=== PATIENT | female | born 1945 | race Caucasian/White ===

== ENCOUNTER 2019-01-11 19:13 | Inpatient (IN) ==
[2019-01-12] MEDS ORDERED: *HR* GlyBURIDE 5 MG TABLET PO SCH (17:00)
[2019-01-12] MEDS: *HR* Metformin 500 MG TABLET PO SCH (18:06)
[2019-01-12] MEDS: hydrALAZINE 25 MG TABLET PO SCH (21:27)
[2019-01-13] MEDS: Levothyroxine 25 MCG TABLET PO SCH (05:47)
[2019-01-13 06:19] LABS: Basophils % 0.3 %; Eosinophils # 0.3 K/mcL (0.0-0.6); Eosinophils % 3.5 %; Hematocrit 35.1 % (35.3-44.9); Hemoglobin 11.1 g/dL (11.5-15.4); Immature Granulocytes % 0.4 % (0-4); Lymphocytes # 1.9 K/mcL (0.6-4.6); Lymphocytes % 25.3 %; Mean Corpuscular HGB Conc 31.6 g/dL (31.6-35.5); Mean Corpuscular Hemoglobin 26.7 pg (28.0-33.3); Mean Corpuscular Volume 84.6 fL (83.0-100.0); Mean Platelet Volume 11.2 fL (9.4-12.4); Monocytes # 0.6 K/mcL (0.0-1.3); Neutrophils # 4.6 K/mcL (1.6-8.9); Platelet Count 254 K/mcL (140-400); Red Blood Count 4.15 M/mcL (3.82-4.97); Red Cell Distribution Width 15.4 % (11.5-14.5); Segmented Neutrophils % 62.5 %
[2019-01-13 06:41] LABS: Prothrombin Time 11.8 Seconds (9.4-12.1)
[2019-01-13 06:47] LABS: BUN/Creatinine Ratio 13 (6-26); Blood Urea Nitrogen 14 mg/dL (8-23); Calcium 9.4 mg/dL (8.6-10.3); Carbon Dioxide 29 mEq/L (23-29); Chloride 98 mEq/L (98-107); Glucose 197 mg/dL (70-105); Osmolality,Calculated 286 (280-300); Potassium 3.6 mEq/L (3.5-5.1); Sodium 135 mEq/L (136-145); eGFR For Non-African Americans 50 (> 60)
[2019-01-13] MEDS: Ondansetron ODT 4 MG TAB.RAPDIS SL PRN (08:03)
[2019-01-13] MEDS: *HR* Metformin 500 MG TABLET PO SCH ×2 (10:40→18:20)
[2019-01-13] MEDS: *HR* GlyBURIDE 5 MG TABLET PO SCH ×2 (10:40→18:21)
[2019-01-13] MEDS: Multivit/Ca/Min/Fe/FA 1 TAB TABLET PO SCH (10:41)
[2019-01-13] MEDS: Anastrozole 1 MG TABLET PO SCH (10:41)
[2019-01-13] MEDS: hydrALAZINE 25 MG TABLET PO SCH ×2 (10:41→21:21)
[2019-01-13] MEDS: Cholecalciferol (D-3) 1,000 UNIT TABLET PO SCH (10:41)
--- NOTE | 2019-01-13 12:08 | Internal Med History&Physical ---
Date of Encounter: 01/13/19 Time of Encounter: 11:35 Assessment and Plan (1) Cerebellar stroke Current visit: Yes Status: Acute Continue Plavix. PT and OT evaluations have been ordered. (2) Anemia Current visit: Yes Status: Acute Hemoglobin 11.1 today. Anemia testing will be done in a.m. Qualifiers: Anemia type: unspecified type Qualified Code(s): D64.9 - Anemia, unspecified (3) HTN (hypertension) Current visit: No Status: Chronic Continue Coreg, chlorthalidone, hydralazine, and Cozaar. Qualifiers: Hypertension type: essential hypertension Qualified Code(s): I10 - Essential (primary) hypertension (4) DM II (diabetes mellitus, type II), controlled Current visit: No Status: Chronic Hemoglobin A1c was 7.9% on 01/08/2019. Continue glyburide and Glucophage. Qualifiers: Diabetes mellitus jail insulin use: without jail use Diabetes mellitus complication status: without complication Qualified Code(s): E11.9 - Type 2 diabetes mellitus without complications Internal Medicine - H&P: HPI Chief complaint: Stroke Admitted From: Intrahospital Transfer Plans for Post Hospital Care: Home History of present illness: Ms. Andre is a 73 year old female who was hospitalized at [facility] December 4 after presenting with falling and ataxia onset 4 days previously. She was found to have multiple acute small bilateral cerebellar infarcts. MRA showed filling absence of the right vertebral likely secondary to 100% occlusion, 70% focal stenosis in the left vertebral distal V4 segment , 40% stenosis of the proximal left CHILDR[employer] CLUB ATTENDANT P2 segment, and 90% stenosis of the origin of the right CHIL[employer] ATTENDANT P2 segment. She was placed on aspirin and Plavix initially and was discharged on Plavix and statin. Echocardiogram showed no valvular abnormalities or thrombus. She was discharged to [facility] swing bed for ongoing care needs. She denies previous documented strokes. She denies seizures syncope or other neurologic diagnoses. Past Med Surg Social Fam HX - Past Medical History Medical history: cancer, CHF, diabetes, GERD, hypertension Additional medical history: OSTEOPENIA. URINARY FREQUENCY/INCONTINENCE. DIVERTICULOSIS. RIGHT BREAST CA Psychiatric history: no psych history - Past Surgical History Surgical History: hysterectomy, other Additional surgical history: sinus sx, right ankle break and repair, tubal - Social History Smoking Status: Former smoker Packs per day: 0 Smokeless Tobacco Status: No Alcohol use: none Drug use: none - Family History Mother Adopted: No Family Member Ethnicity: Non- Living Status: Hx Family Cardiac Disorders: Yes Hx Family Respiratory Disorders: No Hx Family Cancer: Yes Hx Family GI Disorders: No Hx Family Endocrine Disorder: No Hx Family Neuromuscular Disorders: No Hx Family Neurologic Disorders: No Hx Family HEENT Disorders: No Hx Family Autoimmune Disorders: No Father Adopted: Yes Family Member Ethnicity: Non- Living Status: Hx Family Cardiac Disorders: Yes Hx Family Respiratory Disorders: No Hx Family Cancer: Yes Hx Family GI Disorders: No Hx Family Endocrine Disorder: No Hx Family Neuromuscular Disorders: No Hx Family Neurologic Disorders: No Hx Family HEENT Disorders: No Hx Family Autoimmune Disorders: No Internal Medicine - H&P: Meds Glyburide/Metformin HCl [Glucovance 5-500 mg Tablet] 2 tab PO BID 12/02/15 [History] Levothyroxine [Synthroid] 25 mcg PO DAILY 12/02/15 [History] Omeprazole [PriLOSEC] 40 mg PO DAILY 12/02/15 [History] Docusate [Colace] 1 cap PO DAILY PRN 09/20/18 [History] Anastrozole [Arimidex] 1 mg PO DAILY 30 Days #30 tablet 10/24/18 [Rx] Calcium Carbonate/Vitamin D3 [Calcium 500 + Vit D Caplet] 2 each PO DAILY #60 tablet 10/24/18 [Rx] Mv W-Ca/Iron/FA/Lutein/Hrb#179 [Surinder Multivit For Women Caplet] 1 tab PO DAILY 01/08/19 [History] Atorvastatin [Lipitor] 80 mg PO HS tablet 01/12/19 [Rx] Carvedilol [Coreg] 12.5 mg PO BIDWM tablet 01/12/19 [Rx] Chlorthalidone 25 mg PO DAILY tablet 01/12/19 [Rx] Clopidogrel [Plavix] 75 mg PO DAILY tablet 01/12/19 [Rx] Losartan [Cozaar] 50 mg PO DAILY tablet 01/12/19 [Rx] hydrALAZINE [HydrALAZINE] 25 mg PO BID tablet 01/12/19 [Rx] Allergy/AdvReac Type Severity Reaction Status Date / Time Sulfa (Sulfonamide Allergy Intermediate SKIN SORES Verified 01/08/19 11:08 Antibiotics) hydrocodone [From Vicodin] AdvReac Mild Itching Verified 01/08/19 11:08 hydrochlorothiazide AdvReac Unknown DECREASED Verified 01/08/19 11:08 BP codeine AdvReac Nausea Verified 01/08/19 11:08 lisinopril AdvReac DECREASED Verified 01/08/19 11:08 BP All Systems PM: A 10-system review of systems was performed and is negative for pertinent findings except as documented above in the HPI. Review of systems: Gen.: Her weight has decreased approximately 10 pounds in the past few months, unintentionally Cardiovascular: She has history of hypertension but denies [place] heart failure angina DVT or pulmonary embolus. Echocardiogram 01/09/2019 showed LVEF of 60- 65%. The interventricular septum and posterior wall thickness measurements were elevated at 1.30 cm each. The E/A ratio was 0.9. No significant valvular abnormalities were seen. No vegetations or thrombus was noted. Respiratory: She smoked from age [age] up to 3 packs per day. She reports PFTs approximately 2013 ago showed no chronic lung disease. She does not use home oxygen and has not been tested for sleep apnea. GI: She has had rectal polyps removed. She denies disorders of her liver gallbladder or exocrine pancreas : She denies hematuria dysuria or kidney stones Neurologic: As per history of present illness Endocrine: She was diagnosed with DM 2 approximately 2001. She has hypothyroidism and hyperlipidemia Hematology/oncology: She was diagnosed with right breast cancer 2015 and underwent lumpectomy. She declined XRT. She had recurrent cancer August 2018 and underwent lumpectomy followed by 20 XRT treatments ending November 2018. She is presumed cancer free. She denies other internal malignancies. She has history of anemia. Psychiatric: She denies anxiety depression or other mental health diagnosis [place] skeletal: She has DJD. She had remote left ankle fracture repair. She den ies gout or other bone joint or muscle disorders. - Constitutional Vitals: Temp Pulse Resp BP Pulse Ox 98.5 F 72 16 145/71 94 01/13/19 06:32 01/13/19 06:32 01/13/19 06:32 01/13/19 06:32 01/13/19 06:32 Exam: Gen.: She is a well-developed well-nourished female resting comfortably in bed who appears in no acute distress HEENT: Head is atraumatic and normal cephalic. Eyes: EOMI. There is no scleral icterus. Mouth: Mucosa is moist. Neck: Supple and nontender. There is no thyromegaly or adenopathy noted. Heart: Regular without murmurs gallops or ectopics Lungs: No wheezes or crackles are heard. Abdomen: Soft and nontender. No masses or guarding are noted. Extremities: There is no cyanosis edema or clubbing noted. Dorsalis pedis and posterior tibial pulses are trace to 1+ palpable bilaterally. Neurologic: Mental status: She is talkative and a good historian. Cranial nerves: Smile is symmetric. Forehead wrinkles bilaterally. Tongue protrudes midline. EOMI. Motor: There is no pronator drift. Thumb to sequential finger movement testing was intact bilaterally. Cerebellar: Finger to nose is intact bilaterally. Skin: Warm and dry Internal Med - H&P Results - Labs CBC & Chem 7: 01/13/19 05:15 01/13/19 05:15 Labs: Short CBC 01/13/19 Range/Units 05:15 WBC 7.3 (4.3-11.1) K/mcL Hgb 11.1 L (11.5-15.4) g/dL Hct 35.1 L (35.3-44.9) % Plt Count 254 (140-400) K/mcL Neutrophils # 4.6 (1.6-8.9) K/mcL BMP 01/13/19 05:15 Sodium 135 L Potassium 3.6 Chloride 98 Carbon Dioxide 29 BUN 14 Creatinine 1.07 Glucose 197 H Calcium 9.4
[2019-01-13] MEDS ORDERED: traMADol 50 MG TABLET PO ONE (22:34)
[2019-01-13] MEDS: *HR* Enoxaparin 40 MG/0.4 ML SYRINGE SQ SCH (22:48)
[2019-01-13] MEDS ORDERED: Ibuprofen 600 MG TABLET PO ONE (23:36)
[2019-01-14] MEDS: Ondansetron ODT 4 MG TAB.RAPDIS SL PRN ×2 (01:42→06:26)
[2019-01-14] MEDS: Levothyroxine 25 MCG TABLET PO SCH (06:20)
[2019-01-14] MEDS: *HR* Enoxaparin 40 MG/0.4 ML SYRINGE SQ SCH (06:20)
[2019-01-14] MEDS: *HR* Metformin 500 MG TABLET PO SCH ×2 (11:35→18:03)
[2019-01-14] MEDS: *HR* GlyBURIDE 5 MG TABLET PO SCH ×2 (11:35→18:05)
[2019-01-14] MEDS: Anastrozole 1 MG TABLET PO SCH (11:35)
[2019-01-14] MEDS: hydrALAZINE 25 MG TABLET PO SCH ×2 (11:35→19:56)
[2019-01-14] MEDS: Cholecalciferol (D-3) 1,000 UNIT TABLET PO SCH (11:35)
[2019-01-14] MEDS: Multivit/Ca/Min/Fe/FA 1 TAB TABLET PO SCH (11:35)
--- NOTE | 2019-01-14 18:16 | Internal Med Progress Note ---
Date of Encounter: 01/14/19 Time of Encounter: 18:05 - Assessment and plan (1) Cerebellar stroke Current Visit: Yes Status: Acute Assessment and plan: January 14. Continue Plavix and PT/OT. (2) Anemia Current Visit: Yes Status: Acute Assessment and plan: January 14. Check labs in a.m. Qualifiers: Anemia type: unspecified type Qualified Code(s): D64.9 - Anemia, unspecified (3) HTN (hypertension) Current Visit: No Status: Chronic Assessment and plan: January 14. Continue Coreg, hydralazine, and Cozaar. She reports she was not taking chlorthalidone at home. This will be discontinued. Qualifiers: Hypertension type: essential hypertension Qualified Code(s): I10 - Essential (primary) hypertension (4) DM II (diabetes mellitus, type II), controlled Current Visit: No Status: Chronic Assessment and plan: January 14. Hemoglobin A1c was 7.9% on 01/08/2019. Continue glyburide and Glucophage. Qualifiers: Diabetes mellitus detention insulin use: without intermodal customer service use Diabetes mellitus complication status: without complication Qualified Code(s): E11.9 - Type 2 diabetes mellitus without complications (5) Chest pain Current Visit: Yes Status: Acute Assessment and plan: January 14. Suspect pleurisy etiology. Review of past records showed chest CT July 2017 with bilateral upper lobe nodules. Recommendation for follow-up CT in 3-6 months has not been done. Chest CT will be ordered to further evaluate. Qualifiers: Chest pain type: chest pain on breathing Qualified Code(s): R07.1 - Chest pain on breathing; R07.81 - Pleurodynia - Subjective Interval history: January 14. She developed discomfort in her chest last evening that she describes as a sharp pain worse on deep inspiration under her left breast. She has had minimal cough. She states it has lessened now. She was given ibuprofen last evening. - Constitutional Vitals: Temp Pulse Resp BP Pulse Ox 97.5 F L 63 16 175/65 95 01/14/19 06:46 01/14/19 06:46 01/14/19 06:46 01/14/19 06:46 01/14/19 06:46 Exam: She is resting comfortably in bed and appears in no acute distress. She has worsening of the pain on deep inspiration. Heart is regular without murmurs gallops or ectopics. There is no pleural friction rub heard over the area of pain. I reviewed her medications and lab results. Internal Medicine: Result - Labs CBC & Chem 7: 01/13/19 05:15 01/13/19 05:15 - ABG Interpretation ABG results: PT/INR, D-dimer PT 11.8 Seconds (9.4-12.1) 01/13/19 05:15 Consult Discharge Plan - Plan Referrals: Sadie York MD [Primary Care Provider] - 1 week
[2019-01-14] MEDS: predniSONE 10 MG TABLET PO SCH (19:56)
[2019-01-15] MEDS: Levothyroxine 25 MCG TABLET PO SCH (05:38)
[2019-01-15] MEDS: *HR* Enoxaparin 40 MG/0.4 ML SYRINGE SQ SCH (05:38)
[2019-01-15 06:07] LABS: Basophils % 0.3 %; Eosinophils # 0.1 K/mcL (0.0-0.6); Eosinophils % 1.3 %; Hematocrit 33.3 % (35.3-44.9); Hemoglobin 10.7 g/dL (11.5-15.4); Immature Granulocytes % 0.5 % (0-4); Lymphocytes # 1.1 K/mcL (0.6-4.6); Lymphocytes % 18.2 %; Mean Corpuscular HGB Conc 32.1 g/dL (31.6-35.5); Mean Corpuscular Hemoglobin 26.9 pg (28.0-33.3); Mean Corpuscular Volume 83.7 fL (83.0-100.0); Monocytes # 0.4 K/mcL (0.0-1.3); Monocytes % 5.6 %; Neutrophils # 4.7 K/mcL (1.6-8.9); Platelet Count 239 K/mcL (140-400); Red Blood Count 3.98 M/mcL (3.82-4.97); Red Cell Distribution Width 15.1 % (11.5-14.5); Segmented Neutrophils % 74.1 %
[2019-01-15 06:34] LABS: BUN/Creatinine Ratio 18 (6-26); Blood Urea Nitrogen 18 mg/dL (8-23); Calcium 9.2 mg/dL (8.6-10.3); Carbon Dioxide 29 mEq/L (23-29); Chloride 94 mEq/L (98-107); Glucose 232 mg/dL (70-105); Osmolality,Calculated 281 (280-300); Potassium 4.1 mEq/L (3.5-5.1); Sodium 131 mEq/L (136-145); eGFR For Non-African Americans 54 (> 60)
[2019-01-15 06:48] LABS: Thyroid Stimulating Hormone 0.693 mcIU/mL (0.340-5.600)
[2019-01-15] MEDS: Ondansetron ODT 4 MG TAB.RAPDIS SL PRN (09:05)
[2019-01-15 09:13] LABS: % Iron Saturation 9 % (15-50); Iron 36 mcg/dL (50-170); Transferrin 276 mg/dL (203-362)
[2019-01-15 09:31] LABS: Ferritin 85 ng/mL (10-120)
[2019-01-15 09:37] LABS: Folate 17.1 ng/mL (3.0-16.0)
[2019-01-15] MEDS ORDERED: Isovue-370 500 ML BOTTLE IVP ONE (09:51)
[2019-01-15] MEDS: *HR* GlyBURIDE 5 MG TABLET PO SCH ×2 (10:05→17:43)
[2019-01-15] MEDS: Cholecalciferol (D-3) 1,000 UNIT TABLET PO SCH (10:05)
[2019-01-15] MEDS: hydrALAZINE 25 MG TABLET PO SCH ×2 (10:05→21:19)
[2019-01-15] MEDS: Multivit/Ca/Min/Fe/FA 1 TAB TABLET PO SCH (10:06)
[2019-01-15] MEDS: predniSONE 10 MG TABLET PO SCH ×2 (10:07→21:19)
[2019-01-15] MEDS: Anastrozole 1 MG TABLET PO SCH (10:07)
[2019-01-15] MEDS: *HR* Metformin 500 MG TABLET PO SCH (10:24)
--- NOTE | 2019-01-15 15:59 | Internal Med Progress Note ---
Date of Encounter: 01/15/19 Time of Encounter: 14:50 - Assessment and plan (1) Cerebellar stroke Current Visit: Yes Status: Acute Assessment and plan: January 14. Continue Plavix and PT/OT. (2) Anemia Current Visit: Yes Status: Acute Assessment and plan: January 14. Check labs in a.m. January 15. Anemia testing shows iron 36, transferrin saturation 9%, transferrin 276, B12 444, and folate 17.1. Start ferrous sulfate with ascorbic acid in a.m. Qualifiers: Anemia type: unspecified type Qualified Code(s): D64.9 - Anemia, unspecified (3) HTN (hypertension) Current Visit: No Status: Chronic Assessment and plan: January 14. Continue Coreg, hydralazine, and Cozaar. She reports she was not taking chlorthalidone at home. This will be discontinued. January 15. Blood pressure slightly higher than desirable. Continue to monitor and adjust medications as needed. Qualifiers: Hypertension type: essential hypertension Qualified Code(s): I10 - Essential (primary) hypertension (4) DM II (diabetes mellitus, type II), controlled Current Visit: No Status: Chronic Assessment and plan: January 14. Hemoglobin A1c was 7.9% on 01/08/2019. Continue glyburide and Glucophage. Qualifiers: Diabetes mellitus fdc insulin use: without intermodal truck driver use Diabetes mellitus complication status: without complication Qualified Code(s): E11.9 - Type 2 diabetes mellitus without complications (5) Chest pain Current Visit: Yes Status: Acute Assessment and plan: January 14. Suspect pleurisy etiology. Review of past records showed chest CT July 2017 with bilateral upper lobe nodules. Recommendation for follow-up CT in 3-6 months has not been done. Chest CT will be ordered to further evaluate. January 15. Improved. D-dimer was elevated at 881 so chest CTA was done. No pulm onary embolism was seen and nodules previously noted in upper lungs had resolved. Continue prednisone and Naprosyn until tomorrow Qualifiers: Chest pain type: chest pain on breathing Qualified Code(s): R07.1 - Chest pain on breathing; R07.81 - Pleurodynia - Subjective Interval history: January 14. She developed discomfort in her chest last evening that she describes as a sharp pain worse on deep inspiration under her left breast. She has had minimal cough. She states it has lessened now. She was given ibuprofen last evening. January 15. She states her chest pain has lessened further. She has no new complaints. - Constitutional Vitals: Temp Pulse Resp BP Pulse Ox 97.8 F 68 16 154/67 93 01/15/19 06:56 01/15/19 06:56 01/15/19 06:56 01/15/19 06:56 01/15/19 06:56 Exam: She is resting comfortably in bed and appears in no acute distress. Her affect is bright and cheerful. I reviewed her medications, lab results, and CT report. Internal Medicine: Result - Labs CBC & Chem 7: 01/15/19 05:14 01/15/19 05:14 Labs: Short CBC 01/15/19 Range/Units 05:14 WBC 6.3 (4.3-11.1) K/mcL Hgb 10.7 L (11.5-15.4) g/dL Hct 33.3 L (35.3-44.9) % Plt Count 239 (140-400) K/mcL Neutrophils # 4.7 (1.6-8.9) K/mcL BMP 01/15/19 05:14 Sodium 131 L Potassium 4.1 Chloride 94 L Carbon Dioxide 29 BUN 18 Creatinine 1.01 Glucose 232 H Calcium 9.2 - ABG Interpretation ABG results: PT/INR, D-dimer PT 11.8 Seconds (9.4-12.1) 01/13/19 05:15 881 ng/mLFEU (0-500) H 01/14/19 18:46 - Impressions Impressions Chest CTA 01/15/19 09:51 IMPRESSION: Negative for pulmonary embolus. Cardiomegaly D/ / Ang Lane MD / Ang Lane MD Interpreting Provider: Ang Lane MD Consult Discharge Plan - Plan Referrals: Sadie York MD [Primary Care Provider] - 1 week
[2019-01-16] MEDS: traMADol 50 MG TABLET PO PRN (01:39)
[2019-01-16] MEDS: *HR* Enoxaparin 40 MG/0.4 ML SYRINGE SQ SCH (05:45)
[2019-01-16] MEDS: Levothyroxine 25 MCG TABLET PO SCH (05:45)
[2019-01-16] MEDS: Ascorbic Acid 500 MG TABLET PO SCH (05:45)
[2019-01-16] MEDS: *HR* GlyBURIDE 5 MG TABLET PO SCH ×2 (08:56→16:40)
[2019-01-16] MEDS: Anastrozole 1 MG TABLET PO SCH (08:57)
[2019-01-16] MEDS: hydrALAZINE 25 MG TABLET PO SCH ×2 (08:58→21:38)
[2019-01-16] MEDS: Cholecalciferol (D-3) 1,000 UNIT TABLET PO SCH (08:58)
[2019-01-16] MEDS: Multivit/Ca/Min/Fe/FA 1 TAB TABLET PO SCH (08:58)
[2019-01-16] MEDS: predniSONE 10 MG TABLET PO SCH ×2 (08:58→21:38)
[2019-01-16] MEDS: MOM Conc 10 ML UD.LIQ PO SCH (12:01)
[2019-01-16] MEDS ORDERED: *HR* Dextrose 50 % in Water (Syg) 50 ML SYRINGE IVP PRN (22:05)
[2019-01-16] MEDS ORDERED: Dextrose Gel 15 GM/37.5 ML TUBE PO PRN ×2 (22:05)
[2019-01-16] MEDS ORDERED: D5% in Water 1,000 ML IVC PRN (22:05)
[2019-01-16] MEDS: Insulin LISPRO 300 UNITS/3 ML VIAL SQ SCH (22:45)
[2019-01-17] MEDS: Levothyroxine 25 MCG TABLET PO SCH (06:38)
[2019-01-17] MEDS: Ascorbic Acid 500 MG TABLET PO SCH (06:38)
[2019-01-17] MEDS: *HR* Enoxaparin 40 MG/0.4 ML SYRINGE SQ SCH (06:39)
[2019-01-17] MEDS: Insulin LISPRO 300 UNITS/3 ML VIAL SQ SCH ×4 (08:43→20:07)
[2019-01-17] MEDS: predniSONE 10 MG TABLET PO SCH (08:46)
[2019-01-17] MEDS: hydrALAZINE 25 MG TABLET PO SCH ×2 (08:46→20:07)
[2019-01-17] MEDS: Multivit/Ca/Min/Fe/FA 1 TAB TABLET PO SCH (08:47)
[2019-01-17] MEDS: *HR* GlyBURIDE 5 MG TABLET PO SCH ×2 (08:47→16:44)
[2019-01-17] MEDS: Cholecalciferol (D-3) 1,000 UNIT TABLET PO SCH (08:47)
[2019-01-17] MEDS: Anastrozole 1 MG TABLET PO SCH (08:49)
--- NOTE | 2019-01-17 12:26 | Internal Med Progress Note ---
Date of Encounter: 01/17/19 Time of Encounter: 12:18 - Assessment and plan (1) Cerebellar stroke Current Visit: Yes Status: Acute Assessment and plan: January 14. Continue Plavix and PT/OT. (2) Anemia Current Visit: Yes Status: Acute Assessment and plan: January 14. Check labs in a.m. January 15. Anemia testing shows iron 36, transferrin saturation 9%, transferrin 276, B12 444, and folate 17.1. Start ferrous sulfate with ascorbic acid in a.m. Qualifiers: Anemia type: unspecified type Qualified Code(s): D64.9 - Anemia, unspecified (3) HTN (hypertension) Current Visit: No Status: Chronic Assessment and plan: January 14. Continue Coreg, hydralazine, and Cozaar. She reports she was not taking chlorthalidone at home. This will be discontinued. January 15. Blood pressure slightly higher than desirable. Continue to monitor and adjust medications as needed. January 17. Blood pressure remains elevated. Increase Coreg to 25 mg twice a day. Continue hydralazine and Cozaar. Qualifiers: Hypertension type: essential hypertension Qualified Code(s): I10 - Essential (primary) hypertension (4) DM II (diabetes mellitus, type II), controlled Current Visit: No Status: Chronic Assessment and plan: January 14. Hemoglobin A1c was 7.9% on 01/08/2019. Continue glyburide and Glucophage. January 17. Metformin was held after chest CTA. Her home glyburide dose was 10 mg twice a day per her report. She has been restarted on lower dose glyburide. Adjust glyburide dose upward and possibly restart metformin tomorrow. Qualifiers: Diabetes mellitus detention insulin use: without detention use Diabetes mellitus complication status: without complication Qualified Code(s): E11.9 - Type 2 diabetes mellitus without complications (5) Chest pain Current Visit: Yes Status: Acute Assessment and plan: January 14. Suspect pleurisy etiology. Review of past records showed chest CT July 2017 with bilateral upper lobe nodules. Recommendation for follow-up CT in 3-6 months has not been done. Chest CT will be ordered to further evaluate. January 15. Improved. D-dimer was elevated at 881 so chest CTA was done. No pulmonary embolism was seen and nodules previously noted in upper lungs had resolved. Continue prednisone and Naprosyn until tomorrow January 17. Resolved. Discontinue prednisone and Naprosyn. Qualifiers: Chest pain type: chest pain on breathing Qualified Code(s): R07.1 - Chest pain on breathing; R07.81 - Pleurodynia - Subjective Interval history: January 14. She developed discomfort in her chest last evening that she describes as a sharp pain worse on deep inspiration under her left breast. She has had minimal cough. She states it has lessened now. She was given ibuprofen last evening. January 15. She states her chest pain has lessened further. She has no new complaints. January 15. She has no new complaints. She reports her chest pain has resolved. She is pleased with her progress in therapy. - Constitutional Vitals: Temp Pulse Resp BP Pulse Ox 97.8 F 68 14 193/76 97 01/17/19 06:14 01/17/19 08:42 01/17/19 06:14 01/17/19 08:42 01/17/19 08:42 Exam: She is resting comfortable on the side of bed eating lunch. Her affect is bright and cheerful. I reviewed her medications and lab results. Internal Medicine: Result - Labs CBC & Chem 7: 01/15/19 05:14 01/15/19 05:14 - ABG Interpretation ABG results: PT/INR, D-dimer PT 11.8 Seconds (9.4-12.1) 01/13/19 05:15 881 ng/mLFEU (0-500) H 01/14/19 18:46 Consult Discharge Plan - Plan Referrals: Sadie York MD [Primary Care Provider] - 1 week
[2019-01-18] MEDS: *HR* Enoxaparin 40 MG/0.4 ML SYRINGE SQ SCH (06:12)
[2019-01-18] MEDS: Levothyroxine 25 MCG TABLET PO SCH (06:12)
[2019-01-18] MEDS: Ascorbic Acid 500 MG TABLET PO SCH (06:12)
[2019-01-18] MEDS: Cholecalciferol (D-3) 1,000 UNIT TABLET PO SCH (08:44)
[2019-01-18] MEDS: Multivit/Ca/Min/Fe/FA 1 TAB TABLET PO SCH (08:44)
[2019-01-18] MEDS: *HR* GlyBURIDE 5 MG TABLET PO SCH ×2 (08:44→16:57)
[2019-01-18] MEDS: hydrALAZINE 25 MG TABLET PO SCH ×2 (08:44→20:41)
[2019-01-18] MEDS: Insulin LISPRO 300 UNITS/3 ML VIAL SQ SCH ×5 (08:46→20:54)
[2019-01-18] MEDS: Anastrozole 1 MG TABLET PO SCH (08:49)
[2019-01-18] MEDS: MOM Conc 10 ML UD.LIQ PO SCH (11:44)
[2019-01-19] MEDS: Levothyroxine 25 MCG TABLET PO SCH (06:32)
[2019-01-19] MEDS: Ascorbic Acid 500 MG TABLET PO SCH (06:32)
[2019-01-19] MEDS: *HR* Enoxaparin 40 MG/0.4 ML SYRINGE SQ SCH (06:32)
[2019-01-19] MEDS: Cholecalciferol (D-3) 1,000 UNIT TABLET PO SCH (08:55)
[2019-01-19] MEDS: *HR* GlyBURIDE 5 MG TABLET PO SCH ×2 (08:55→18:46)
[2019-01-19] MEDS: Multivit/Ca/Min/Fe/FA 1 TAB TABLET PO SCH (08:56)
[2019-01-19] MEDS: *HR* Metformin 500 MG TABLET PO SCH ×2 (08:56→18:46)
[2019-01-19] MEDS: hydrALAZINE 25 MG TABLET PO SCH ×2 (08:56→20:56)
[2019-01-19] MEDS: Insulin LISPRO 300 UNITS/3 ML VIAL SQ SCH ×4 (08:57→20:56)
[2019-01-19] MEDS: Anastrozole 1 MG TABLET PO SCH (09:01)
[2019-01-19] MEDS ORDERED: *HR* Dextrose 50 % in Water (Vial) 50 ML VIAL IVP PRN (13:00)
[2019-01-20] MEDS: traMADol 50 MG TABLET PO PRN (00:34)
[2019-01-20] MEDS: Ondansetron ODT 4 MG TAB.RAPDIS SL PRN (06:16)
[2019-01-20] MEDS: *HR* Enoxaparin 40 MG/0.4 ML SYRINGE SQ SCH (06:47)
[2019-01-20] MEDS: Ascorbic Acid 500 MG TABLET PO SCH (06:47)
[2019-01-20] MEDS: Levothyroxine 25 MCG TABLET PO SCH (06:47)
[2019-01-20] MEDS: Insulin LISPRO 300 UNITS/3 ML VIAL SQ SCH ×4 (08:09→21:32)
[2019-01-20] MEDS: *HR* GlyBURIDE 5 MG TABLET PO SCH ×2 (08:10→16:49)
[2019-01-20] MEDS: Multivit/Ca/Min/Fe/FA 1 TAB TABLET PO SCH (08:10)
[2019-01-20] MEDS: *HR* Metformin 500 MG TABLET PO SCH ×2 (08:10→16:49)
[2019-01-20] MEDS: Cholecalciferol (D-3) 1,000 UNIT TABLET PO SCH (08:10)
[2019-01-20] MEDS: hydrALAZINE 25 MG TABLET PO SCH ×2 (08:10→21:32)
[2019-01-20] MEDS: Anastrozole 1 MG TABLET PO SCH (08:10)
--- NOTE | 2019-01-20 09:58 | Discharge Summary ---
Date of Encounter: 01/20/19 Time of Encounter: 09:47 - Discharge Diagnosis (1) Cerebellar stroke Priority: Primary Status: Acute (2) Anemia Priority: Secondary Status: Acute Qualifiers: Anemia type: unspecified type Qualified Code(s): D64.9 - Anemia, unspecified (3) HTN (hypertension) Priority: Secondary Status: Chronic Qualifiers: Hypertension type: essential hypertension Qualified Code(s): I10 - Essential (primary) hypertension (4) DM II (diabetes mellitus, type II), controlled Priority: Secondary Status: Chronic Qualifiers: Diabetes mellitus fpc insulin use: without fpc use Diabetes mellitus complication status: without complication Qualified Code(s): E11.9 - Type 2 diabetes mellitus without complications (5) Chest pain Priority: Secondary Status: Resolved Qualifiers: Chest pain type: chest pain on breathing Qualified Code(s): R07.1 - Chest pain on breathing; R07.81 - Pleurodynia Hospital course: Ms. Andre is a 73 year old female who was hospitalized at [facility] December after presenting with falling and ataxia onset 4 days previously. She was found to have multiple acute small bilateral cerebellar infarcts. MRA showed filling absence of the right vertebral likely secondary to 100% occlusion, 70% focal stenosis in the left vertebral distal V4 segment , 40% stenosis of the proximal left [employer]OL[employer] PLANT OPERATOR P2 segment, and 90% stenosis of the origin of the right [employer] PLANT OPERATOR P2 segment. She was placed on aspirin and Plavix initially and was discharged on Plavix and statin. Echocardiogram showed no valvular abnormalities or thrombus. She was discharged to [facility] swing bed for ongoing care needs. Initial orders written by the discharging physicians at [facility]. I saw her on January 13 and performed a swing bed history and physical. She continued on Plavix. PT and OT evaluations with ongoing intervention were done. She made satisfactory progress in therapy. Home health services including PT/OT will be ordered at discharge. Anemia testing showed iron 36, transferrin saturation 9%, transferrin 276, B12 444, and folate 17.1. She was started on ferrous sulfate with ascorbic acid and these will be continued at discharge. Blood pressure remained slightly higher than desirable. Coreg dose was increased to 25 mg twice a day. She continued on hydralazine and Cozaar. Her PCP can monitor. She developed pleuritic-type chest pain. Chest CTA showed no evidence of PE. She was given a short course of prednisone and Naprosyn and her pain resolved and did not recur. On January 20 arrangements were complete for her to be discharged home. She will follow with her PCP within 1 week. Home health services will be ordered. - Time Spent with Patient Total time spent providing and/or coordinating discharge services: - Discharge Medications Prescriptions: New Carvedilol [Coreg] 25 mg PO BIDWM #60 tablet Ferrous Sulfate 325 mg PO 0630 #30 tablet Promethazine [Phenergan] 12.5 mg PO Q6HR PRN #12 tablet PRN Reason: Nausea Ascorbic Acid [Vitamin C] 500 mg PO 0630 #30 tablet Continued Glyburide/Metformin HCl [Glucovance 5-500 mg Tablet] 2 tab PO BID Levothyroxine [Synthroid] 25 mcg PO DAILY Omeprazole [PriLOSEC] 40 mg PO DAILY Docusate [Colace] 1 cap PO DAILY PRN PRN Reason: Constipation Anastrozole [Arimidex] 1 mg PO DAILY 30 Days #30 tablet Calcium Carbonate/Vitamin D3 [Calcium 500 + Vit D Caplet] 2 each PO DAILY #60 tablet Mv W-Ca/Iron/FA/Lutein/Hrb#179 [Surinder Multivit For Women Caplet] 1 tab PO DAILY Atorvastatin [Lipitor] 80 mg PO HS tablet Losartan [Cozaar] 50 mg PO DAILY tablet hydrALAZINE [HydrALAZINE] 25 mg PO BID tablet Clopidogrel [Plavix] 75 mg PO DAILY #30 tablet Discontinued Carvedilol [Coreg] 12.5 mg PO BIDWM tablet Chlorthalidone 25 mg PO DAILY tablet Home Medications: Glyburide/Metformin HCl [Glucovance 5-500 mg Tablet] 2 tab PO BID 12/02/15 [History] Levothyroxine [Synthroid] 25 mcg PO DAILY 12/02/15 [History] Omeprazole [PriLOSEC] 40 mg PO DAILY 12/02/15 [History] Docusate [Colace] 1 cap PO DAILY PRN 09/20/18 [History] Anastrozole [Arimidex] 1 mg PO DAILY 30 Days #30 tablet 10/24/18 [Rx] Calcium Carbonate/Vitamin D3 [Calcium 500 + Vit D Caplet] 2 each PO DAILY #60 tablet 10/24/18 [Rx] Mv W-Ca/Iron/FA/Lutein/Hrb#179 [Surinder Multivit For Women Caplet] 1 tab PO DAILY 01/08/19 [History] Atorvastatin [Lipitor] 80 mg PO HS tablet 01/12/19 [Rx] Losartan [Cozaar] 50 mg PO DAILY tablet 01/12/19 [Rx] hydrALAZINE [HydrALAZINE] 25 mg PO BID tablet 01/12/19 [Rx] Ascorbic Acid [Vitamin C] 500 mg PO 0630 #30 tablet 01/20/19 [Rx] Carvedilol [Coreg] 25 mg PO BIDWM #60 tablet 01/20/19 [Rx] Clopidogrel [Plavix] 75 mg PO DAILY #30 tablet 01/20/19 [Rx] Ferrous Sulfate 325 mg PO 0630 #30 tablet 01/20/19 [Rx] Promethazine [Phenergan] 12.5 mg PO Q6HR PRN #12 tablet 01/20/19 [Rx] Allergies/Adverse Reactions: Allergy/AdvReac Type Severity Reaction Status Date / Time Sulfa (Sulfonamide Allergy Intermediate SKIN SORES Verified 01/08/19 11:08 Antibiotics) hydrocodone [From Vicodin] AdvReac Mild Itching Verified 01/08/19 11:08 hydrochlorothiazide AdvReac Unknown DECREASED Verified 01/08/19 11:08 BP codeine AdvReac Nausea Verified 01/08/19 11:08 lisinopril AdvReac DECREASED Verified 01/08/19 11:08 BP Date of admission: 01/12/19 12:45 Primary care physician: Sadie York MD Consults: 01/12/19 12:04 Consult to Conveyor Belt Repairer [CONS] Routine Reason for SW Consult: may need HH upon discharge 01/12/19 14:56 Consult to Nutrition [CONS] Routine Comment: Consulting Provider: NUTRITION Reason for Dietary Consult: MST Score 01/12/19 18:55 Consult to Occupational Therapy [CONS] Routine Comment: Evaluate, develop and implement POC Reason for Consult: Evaluate, develop and implement POC Does patient have active BEDREST order?: No Is patient medically & hemodynamically stable?: Yes Consult to Physical Therapy [CONS] Routine Comment: Evaluate, develop and implement POC Reason for Consult: Evaluate, develop and implement POC Does patient have active BEDREST order?: No Is patient medically & hemodynamically stable?: Yes - Constitutional Vitals: Temp Pulse Resp BP Pulse Ox 97.8 F 66 18 175/63 96 01/20/19 07:26 01/20/19 07:26 01/20/19 07:26 01/20/19 07:26 01/20/19 07:26 - Patient Status Disposition: Home Health Service - Discharge Instructions Follow Up With: Sadie York MD [Primary Care Provider] - 1 week - Diet and Activity Activity: as per physical therapy Diet: diabetic diet, low fat, low cholesterol, low salt diet
[2019-01-20] MEDS: MOM Conc 10 ML UD.LIQ PO SCH (16:47)
[2019-01-21] MEDS: Ascorbic Acid 500 MG TABLET PO SCH (06:41)
[2019-01-21] MEDS: Levothyroxine 25 MCG TABLET PO SCH (06:42)
[2019-01-21] MEDS: *HR* Enoxaparin 40 MG/0.4 ML SYRINGE SQ SCH (06:42)
[2019-01-21 07:24] VITALS: BP 181/70
[2019-01-21] MEDS: *HR* Metformin 500 MG TABLET PO SCH ×2 (07:43→17:25)
[2019-01-21] MEDS: *HR* GlyBURIDE 5 MG TABLET PO SCH ×2 (07:43→17:25)
[2019-01-21] MEDS: Multivit/Ca/Min/Fe/FA 1 TAB TABLET PO SCH (07:43)
[2019-01-21] MEDS: Cholecalciferol (D-3) 1,000 UNIT TABLET PO SCH (07:43)
[2019-01-21] MEDS: hydrALAZINE 25 MG TABLET PO SCH (07:43)
[2019-01-21] MEDS: Insulin LISPRO 300 UNITS/3 ML VIAL SQ SCH ×3 (07:43→17:26)
[2019-01-21] MEDS: Anastrozole 1 MG TABLET PO SCH (07:44)
--- NOTE | 2019-01-21 16:58 | Physician Discharge Referral ---
Home Health/Hosp Referral Info Transfer to: Home Health Attending Provider: Tello Provider in Charge Post Discharge: PCP (Chela) - Diagnosis (1) Cerebellar stroke Priority: Primary Status: Acute (2) Anemia Priority: Secondary Status: Acute (3) HTN (hypertension) Priority: Secondary Status: Chronic (4) DM II (diabetes mellitus, type II), controlled Priority: Secondary Status: Chronic (5) Chest pain Priority: Secondary Status: Resolved - Respiratory Orders Smoking Cessation: Smoking cessation has been advised. For more information, call the [place] Tobacco Quit Line at 5-377-ARVK-NOW. - Diet/Nutrition Diet/Nutrition Orders: Cardiac, No Concentrated Sweets - Activity Activity Orders: Walker - Services Needed Following services are medically necessary services: Nursing, Home Health Aide, Physical Therapy, Occupational Therapy - Transfer Medications Prescriptions: Amlodipine Besylate 10 mg PO DAILY #30 tablet Carvedilol [Coreg] 25 mg PO BIDWM #60 tablet Ferrous Sulfate 325 mg PO 0630 #30 tablet Promethazine [Phenergan] 12.5 mg PO Q6HR PRN #12 tablet PRN Reason: Nausea Clopidogrel [Plavix] 75 mg PO DAILY #30 tablet Ascorbic Acid [Vitamin C] 500 mg PO 0630 #30 tablet Home Medications: Glyburide/Metformin HCl [Glucovance 5-500 mg Tablet] 2 tab PO BID 12/02/15 [History] Levothyroxine [Synthroid] 25 mcg PO DAILY 12/02/15 [History] Omeprazole [PriLOSEC] 40 mg PO DAILY 12/02/15 [History] Docusate [Colace] 1 cap PO DAILY PRN 09/20/18 [History] Anastrozole [Arimidex] 1 mg PO DAILY 30 Days #30 tablet 10/24/18 [Rx] Calcium Carbonate/Vitamin D3 [Calcium 500 + Vit D Caplet] 2 each PO DAILY #60 tablet 10/24/18 [Rx] Mv W-Ca/Iron/FA/Lutein/Hrb#179 [Surinder Multivit For Women Caplet] 1 tab PO DAILY 01/08/19 [History] Atorvastatin [Lipitor] 80 mg PO HS tablet 01/12/19 [Rx] Losartan [Cozaar] 50 mg PO DAILY tablet 01/12/19 [Rx] hydrALAZINE [HydrALAZINE] 25 mg PO BID tablet 01/12/19 [Rx] Ascorbic Acid [Vitamin C] 500 mg PO 0630 #30 tablet 01/20/19 [Rx] Carvedilol [Coreg] 25 mg PO BIDWM #60 tablet 01/20/19 [Rx] Clopidogrel [Plavix] 75 mg PO DAILY #30 tablet 01/20/19 [Rx] Ferrous Sulfate 325 mg PO 0630 #30 tablet 01/20/19 [Rx] Promethazine [Phenergan] 12.5 mg PO Q6HR PRN #12 tablet 01/20/19 [Rx] Amlodipine Besylate 10 mg PO DAILY #30 tablet 01/21/19 [Rx] Allergies/Adverse Reactions: Allergy/AdvReac Type Severity Reaction Status Date / Time Sulfa (Sulfonamide Allergy Intermediate SKIN SORES Verified 01/08/19 11:08 Antibiotics) hydrocodone [From Vicodin] AdvReac Mild Itching Verified 01/08/19 11:08 hydrochlorothiazide AdvReac Unknown DECREASED Verified 01/08/19 11:08 BP codeine AdvReac Nausea Verified 01/08/19 11:08 lisinopril AdvReac DECREASED Verified 01/08/19 11:08 BP Certification: Further, I certify that my clinical findings support that this patient is homebound (i.e. absences from home require considerable and taxing effort and are for medical reasons or yazdanism services or infrequently or short duration when for other reasons) because: Homebound Reason: Leaving home requires considerable and taxing effort due to condition (Impaired walking ability secondary to cerebellar CVA) Attestation: My signature below is to certify that this patient is under my care and that I, or nurse practitioner, or a physician's conservation assistant working with me, has a [id number] encounter with this patient.
== END 2019-01-21 17:39 | disposition home health service (06) | DRG 57 ==
LOC: INPPIK 01-12 12:45
PROVIDERS: ADMIT Internal Medicine; ATTEND Internal Medicine

== ENCOUNTER 2021-04-09 17:53 | Inpatient (IN) ==
[2021-04-09] MEDS ORDERED: Nitroglycerin 0.4 MG TAB.SUBL SL PRN (19:59)
[2021-04-09] MEDS ORDERED: *HR* Dextrose 50 % in Water (Vial) 50 ML VIAL IVP PRN (20:01)
[2021-04-09] MEDS ORDERED: D5% in Water 1,000 ML IVC PRN (20:01)
[2021-04-09] MEDS ORDERED: Dextrose Gel 15 GM/37.5 ML TUBE PO PRN ×2 (20:01)
[2021-04-09] MEDS: *HR* GlyBURIDE 5 MG TABLET PO SCH (21:45)
[2021-04-09] MEDS: hydrALAZINE 25 MG TABLET PO SCH (21:45)
[2021-04-09] MEDS: *HR* Metformin 500 MG TABLET PO SCH (21:45)
[2021-04-09] MEDS: *HR* OxyCODONE/APAP 10/325 TABLET PO PRN (22:43)
[2021-04-09] MEDS: polyethylene glycoL 3350 17 GM POWD.PACK PO PRN (23:05)
[2021-04-10] MEDS: hydrALAZINE 25 MG TABLET PO SCH ×3 (04:14→19:44)
[2021-04-10 06:23] LABS: Basophils % 0.4 %; Eosinophils # 0.3 K/mcL (0.0-0.6); Hematocrit 26.4 % (35.3-44.9); Hemoglobin 8.9 g/dL (11.5-15.4); Immature Granulocytes % 0.6 % (0-4); Lymphocytes # 1.1 K/mcL (0.6-4.6); Lymphocytes % 12.9 %; Mean Corpuscular HGB Conc 33.7 g/dL (31.6-35.5); Mean Corpuscular Hemoglobin 28.1 pg (28.0-33.3); Mean Corpuscular Volume 83.3 fL (83.0-100.0); Mean Platelet Volume 10.8 fL (9.4-12.4); Monocytes # 0.8 K/mcL (0.0-1.3); Neutrophils # 6.2 K/mcL (1.6-8.9); Platelet Count 254 K/mcL (140-400); Red Blood Count 3.17 M/mcL (3.82-4.97); Red Cell Distribution Width 15.3 % (11.5-14.5); Segmented Neutrophils % 74.1 %; White Blood Count 8.4 K/mcL (4.3-11.1)
[2021-04-10 06:43] LABS: BUN/Creatinine Ratio 15 (6-26); Blood Urea Nitrogen 15 mg/dL (8-23); Calcium 8.8 mg/dL (8.6-10.3); Carbon Dioxide 31 mEq/L (23-29); Chloride 91 mEq/L (98-107); Glucose 85 mg/dL (70-105); Osmolality,Calculated 272 (280-300); Potassium 3.1 mEq/L (3.5-5.1); Sodium 131 mEq/L (136-145); eGFR For African Americans > 60 (> 60); eGFR For Non-African Americans 56 (> 60)
[2021-04-10] MEDS: *HR* Enoxaparin 40 MG/0.4 ML SYRINGE SQ SCH (06:45)
[2021-04-10] MEDS: Insulin LISPRO 300 UNITS/3 ML VIAL SUBQ SCH ×4 (09:36→19:49)
[2021-04-10] MEDS: Aspirin Enteric Coated 81 MG Tablet PO SCH (09:44)
[2021-04-10] MEDS: *HR* Metformin 500 MG TABLET PO SCH ×2 (09:44→19:49)
[2021-04-10] MEDS: *HR* OxyCODONE/APAP 10/325 TABLET PO PRN ×2 (09:44→18:26)
[2021-04-10] MEDS: *HR* GlyBURIDE 5 MG TABLET PO SCH ×2 (09:44→19:48)
[2021-04-10] MEDS: amLODIPine 5 MG TABLET PO SCH (09:44)
[2021-04-10] MEDS: Isosorbide MONOnitrate (24 HR) 30 MG TAB.ER.24H PO SCH (09:44)
[2021-04-10] MEDS: Multivit/Ca/Min/Fe/FA 1 TAB TABLET PO SCH (09:44)
[2021-04-10] MEDS: Ondansetron ODT 4 MG TAB.RAPDIS SL PRN (16:58)
[2021-04-10] MEDS: polyethylene glycoL 3350 17 GM POWD.PACK PO PRN (16:58)
[2021-04-11] MEDS: hydrALAZINE 25 MG TABLET PO SCH ×3 (03:42→19:57)
[2021-04-11] MEDS: *HR* Enoxaparin 40 MG/0.4 ML SYRINGE SQ SCH (05:49)
[2021-04-11] MEDS: amLODIPine 5 MG TABLET PO SCH (08:16)
[2021-04-11] MEDS: Aspirin Enteric Coated 81 MG Tablet PO SCH (08:16)
[2021-04-11] MEDS: *HR* OxyCODONE/APAP 10/325 TABLET PO PRN ×2 (08:16→19:56)
[2021-04-11] MEDS: Isosorbide MONOnitrate (24 HR) 30 MG TAB.ER.24H PO SCH (08:17)
[2021-04-11] MEDS: *HR* GlyBURIDE 5 MG TABLET PO SCH ×2 (08:17→19:58)
[2021-04-11] MEDS: *HR* Metformin 500 MG TABLET PO SCH ×2 (08:17→19:57)
[2021-04-11] MEDS: Multivit/Ca/Min/Fe/FA 1 TAB TABLET PO SCH (08:17)
[2021-04-11] MEDS: Insulin LISPRO 300 UNITS/3 ML VIAL SUBQ SCH ×4 (08:17→19:59)
[2021-04-11] MEDS: Ondansetron ODT 4 MG TAB.RAPDIS SL PRN (14:55)
[2021-04-11] MEDS: polyethylene glycoL 3350 17 GM POWD.PACK PO PRN (23:05)
[2021-04-12] MEDS: hydrALAZINE 25 MG TABLET PO SCH ×3 (04:06→20:44)
[2021-04-12] MEDS: *HR* Enoxaparin 40 MG/0.4 ML SYRINGE SQ SCH (06:20)
[2021-04-12] MEDS: Insulin LISPRO 300 UNITS/3 ML VIAL SUBQ SCH ×4 (08:16→20:46)
[2021-04-12] MEDS: *HR* Metformin 500 MG TABLET PO SCH ×2 (08:18→20:46)
[2021-04-12] MEDS: *HR* GlyBURIDE 5 MG TABLET PO SCH ×2 (08:18→20:45)
[2021-04-12] MEDS: amLODIPine 5 MG TABLET PO SCH (08:18)
[2021-04-12] MEDS: Aspirin Enteric Coated 81 MG Tablet PO SCH (08:19)
[2021-04-12] MEDS: *HR* OxyCODONE/APAP 10/325 TABLET PO PRN ×2 (08:19→17:36)
[2021-04-12] MEDS: Multivit/Ca/Min/Fe/FA 1 TAB TABLET PO SCH (08:19)
[2021-04-12] MEDS: Isosorbide MONOnitrate (24 HR) 30 MG TAB.ER.24H PO SCH (08:25)
[2021-04-12] MEDS: Ondansetron ODT 4 MG TAB.RAPDIS SL PRN (10:13)
[2021-04-13] MEDS ORDERED: GI Cocktail 40 ML EACH PO ONE (03:41)
[2021-04-13] MEDS: hydrALAZINE 25 MG TABLET PO SCH ×3 (03:50→18:07)
[2021-04-13] MEDS: *HR* Enoxaparin 40 MG/0.4 ML SYRINGE SQ SCH (06:11)
[2021-04-13 09:18] LABS: Hematocrit 26.9 % (35.3-44.9); Hemoglobin 8.7 g/dL (11.5-15.4); Mean Corpuscular HGB Conc 32.3 g/dL (31.6-35.5); Mean Corpuscular Hemoglobin 27.7 pg (28.0-33.3); Mean Corpuscular Volume 85.7 fL (83.0-100.0); Mean Platelet Volume 10.8 fL (9.4-12.4); Platelet Count 262 K/mcL (140-400); Red Blood Count 3.14 M/mcL (3.82-4.97); Red Cell Distribution Width 15.5 % (11.5-14.5); White Blood Count 8.2 K/mcL (4.3-11.1)
[2021-04-13] MEDS: Ondansetron ODT 4 MG TAB.RAPDIS SL PRN (09:22)
[2021-04-13] MEDS: Multivit/Ca/Min/Fe/FA 1 TAB TABLET PO SCH (09:23)
[2021-04-13] MEDS: Isosorbide MONOnitrate (24 HR) 30 MG TAB.ER.24H PO SCH (09:23)
[2021-04-13] MEDS: amLODIPine 5 MG TABLET PO SCH (09:23)
[2021-04-13] MEDS: Aspirin Enteric Coated 81 MG Tablet PO SCH (09:23)
[2021-04-13] MEDS: Furosemide 20 MG TABLET PO SCH ×2 (09:24→18:07)
[2021-04-13] MEDS: *HR* GlyBURIDE 5 MG TABLET PO SCH ×2 (09:24→21:05)
[2021-04-13] MEDS: *HR* Metformin 500 MG TABLET PO SCH ×2 (09:25→21:05)
[2021-04-13] MEDS: Insulin LISPRO 300 UNITS/3 ML VIAL SUBQ SCH ×4 (09:25→21:05)
[2021-04-13] MEDS: polyethylene glycoL 3350 17 GM POWD.PACK PO PRN (09:33)
[2021-04-13 09:37] LABS: BUN/Creatinine Ratio 17 (6-26); Blood Urea Nitrogen 17 mg/dL (8-23); Calcium 9.1 mg/dL (8.6-10.3); Carbon Dioxide 33 mEq/L (23-29); Chloride 92 mEq/L (98-107); Glucose 123 mg/dL (70-105); Osmolality,Calculated 273 (280-300); Potassium 4.1 mEq/L (3.5-5.1); Sodium 130 mEq/L (136-145); eGFR For African Americans > 60 (> 60); eGFR For Non-African Americans 52 (> 60)
[2021-04-13] MEDS: *HR* OxyCODONE/APAP 10/325 TABLET PO PRN (19:33)
[2021-04-14] MEDS: hydrALAZINE 25 MG TABLET PO SCH ×3 (04:07→21:38)
[2021-04-14] MEDS: *HR* Enoxaparin 40 MG/0.4 ML SYRINGE SQ SCH (06:18)
[2021-04-14] MEDS: Insulin LISPRO 300 UNITS/3 ML VIAL SUBQ SCH ×4 (08:33→21:39)
[2021-04-14] MEDS: Aspirin Enteric Coated 81 MG Tablet PO SCH (08:37)
[2021-04-14] MEDS: *HR* GlyBURIDE 5 MG TABLET PO SCH ×3 (08:37→21:39)
[2021-04-14] MEDS: Multivit/Ca/Min/Fe/FA 1 TAB TABLET PO SCH (08:37)
[2021-04-14] MEDS: cloNIDine HCL 0.1 MG TABLET PO SCH ×3 (08:37→21:39)
[2021-04-14] MEDS: Isosorbide MONOnitrate (24 HR) 30 MG TAB.ER.24H PO SCH (08:38)
[2021-04-14] MEDS: amLODIPine 5 MG TABLET PO SCH (08:38)
[2021-04-14] MEDS: Furosemide 20 MG TABLET PO SCH ×2 (08:38→16:51)
[2021-04-14] MEDS: *HR* Metformin 500 MG TABLET PO SCH ×2 (08:39→21:38)
[2021-04-14] MEDS: polyethylene glycoL 3350 17 GM POWD.PACK PO PRN (08:44)
[2021-04-14] MEDS: *HR* OxyCODONE/APAP 10/325 TABLET PO PRN (10:16)
[2021-04-14] MEDS: Sennosides/Docusate Sodium TABLET PO SCH (21:39)
[2021-04-15] MEDS: hydrALAZINE 25 MG TABLET PO SCH ×3 (01:13→16:20)
[2021-04-15] MEDS: *HR* Enoxaparin 40 MG/0.4 ML SYRINGE SQ SCH (06:08)
[2021-04-15] MEDS: Insulin LISPRO 300 UNITS/3 ML VIAL SUBQ SCH ×4 (08:00→20:52)
[2021-04-15] MEDS: Aspirin Enteric Coated 81 MG Tablet PO SCH (09:02)
[2021-04-15] MEDS: *HR* GlyBURIDE 5 MG TABLET PO SCH ×2 (09:02→20:42)
[2021-04-15] MEDS: Sennosides/Docusate Sodium TABLET PO SCH (09:02)
[2021-04-15] MEDS: *HR* Metformin 500 MG TABLET PO SCH ×2 (09:03→20:42)
[2021-04-15] MEDS: amLODIPine 5 MG TABLET PO SCH (09:03)
[2021-04-15] MEDS: cloNIDine HCL 0.1 MG TABLET PO SCH ×3 (09:04→20:42)
[2021-04-15] MEDS: Furosemide 20 MG TABLET PO SCH ×2 (09:04→17:16)
[2021-04-15] MEDS: Isosorbide MONOnitrate (24 HR) 30 MG TAB.ER.24H PO SCH (09:04)
[2021-04-15] MEDS: Multivit/Ca/Min/Fe/FA 1 TAB TABLET PO SCH (09:04)
[2021-04-16] MEDS: Furosemide 20 MG TABLET PO SCH ×2 (06:12→13:54)
[2021-04-16] MEDS: *HR* Enoxaparin 40 MG/0.4 ML SYRINGE SQ SCH (06:12)
[2021-04-16] MEDS: Insulin LISPRO 300 UNITS/3 ML VIAL SUBQ SCH ×4 (07:34→21:53)
[2021-04-16] MEDS: amLODIPine 5 MG TABLET PO SCH (09:45)
[2021-04-16] MEDS: Isosorbide MONOnitrate (24 HR) 30 MG TAB.ER.24H PO SCH (09:45)
[2021-04-16] MEDS: *HR* Metformin 500 MG TABLET PO SCH ×3 (09:45→22:11)
[2021-04-16] MEDS: Multivit/Ca/Min/Fe/FA 1 TAB TABLET PO SCH (09:45)
[2021-04-16] MEDS: *HR* GlyBURIDE 5 MG TABLET PO SCH ×3 (09:45→22:11)
[2021-04-16] MEDS: Aspirin Enteric Coated 81 MG Tablet PO SCH (09:45)
[2021-04-16] MEDS: cloNIDine HCL 0.1 MG TABLET PO SCH ×3 (09:45→21:53)
[2021-04-16] MEDS: *HR* OxyCODONE/APAP 10/325 TABLET PO PRN (11:30)
[2021-04-17] MEDS: *HR* Enoxaparin 40 MG/0.4 ML SYRINGE SQ SCH (06:24)
[2021-04-17] MEDS: Furosemide 20 MG TABLET PO SCH ×2 (06:24→16:22)
[2021-04-17] MEDS: Insulin LISPRO 300 UNITS/3 ML VIAL SUBQ SCH ×4 (08:50→20:17)
[2021-04-17] MEDS: Multivit/Ca/Min/Fe/FA 1 TAB TABLET PO SCH (08:51)
[2021-04-17] MEDS: Aspirin Enteric Coated 81 MG Tablet PO SCH (08:51)
[2021-04-17] MEDS: *HR* GlyBURIDE 5 MG TABLET PO SCH ×2 (08:51→20:16)
[2021-04-17] MEDS: *HR* Metformin 500 MG TABLET PO SCH ×2 (08:51→20:16)
[2021-04-17] MEDS: Isosorbide MONOnitrate (24 HR) 30 MG TAB.ER.24H PO SCH (08:51)
[2021-04-17] MEDS: amLODIPine 5 MG TABLET PO SCH (08:52)
[2021-04-17] MEDS: cloNIDine HCL 0.1 MG TABLET PO SCH ×3 (08:52→20:16)
[2021-04-18] MEDS: Furosemide 20 MG TABLET PO SCH ×2 (05:47→14:13)
[2021-04-18] MEDS: *HR* Enoxaparin 40 MG/0.4 ML SYRINGE SQ SCH (05:47)
[2021-04-18] MEDS: *HR* GlyBURIDE 5 MG TABLET PO SCH ×2 (09:40→20:33)
[2021-04-18] MEDS: Isosorbide MONOnitrate (24 HR) 30 MG TAB.ER.24H PO SCH (09:41)
[2021-04-18] MEDS: Aspirin Enteric Coated 81 MG Tablet PO SCH (09:41)
[2021-04-18] MEDS: amLODIPine 5 MG TABLET PO SCH (09:41)
[2021-04-18] MEDS: *HR* Metformin 500 MG TABLET PO SCH ×2 (09:41→20:33)
[2021-04-18] MEDS: Insulin LISPRO 300 UNITS/3 ML VIAL SUBQ SCH ×4 (09:41→20:33)
[2021-04-18] MEDS: cloNIDine HCL 0.1 MG TABLET PO SCH ×3 (09:41→20:33)
[2021-04-18] MEDS: Multivit/Ca/Min/Fe/FA 1 TAB TABLET PO SCH (09:41)
[2021-04-18] MEDS ORDERED: Saline Nasal Spray 44 ML BOTTLE NS PRN (20:50)
[2021-04-19] MEDS: Furosemide 20 MG TABLET PO SCH ×2 (06:06→16:44)
[2021-04-19] MEDS: *HR* Enoxaparin 40 MG/0.4 ML SYRINGE SQ SCH (06:06)
[2021-04-19 07:10] LABS: Hemoglobin 8.1 g/dL (11.5-15.4); Mean Corpuscular HGB Conc 32.4 g/dL (31.6-35.5); Mean Corpuscular Hemoglobin 27.6 pg (28.0-33.3); Mean Corpuscular Volume 85.3 fL (83.0-100.0); Mean Platelet Volume 11.6 fL (9.4-12.4); Platelet Count 232 K/mcL (140-400); Red Blood Count 2.93 M/mcL (3.82-4.97); White Blood Count 7.4 K/mcL (4.3-11.1)
[2021-04-19 07:26] LABS: BUN/Creatinine Ratio 20 (6-26); Blood Urea Nitrogen 18 mg/dL (8-23); Calcium 8.8 mg/dL (8.6-10.3); Carbon Dioxide 29 mEq/L (23-29); Chloride 96 mEq/L (98-107); Glucose 92 mg/dL (70-105); Osmolality,Calculated 276 (280-300); Potassium 3.8 mEq/L (3.5-5.1); Sodium 132 mEq/L (136-145); eGFR For African Americans > 60 (> 60); eGFR For Non-African Americans > 60 (> 60)
[2021-04-19] MEDS: Insulin LISPRO 300 UNITS/3 ML VIAL SUBQ SCH ×4 (09:37→21:27)
[2021-04-19] MEDS: Isosorbide MONOnitrate (24 HR) 30 MG TAB.ER.24H PO SCH (09:38)
[2021-04-19] MEDS: Aspirin Enteric Coated 81 MG Tablet PO SCH (09:38)
[2021-04-19] MEDS: cloNIDine HCL 0.1 MG TABLET PO SCH ×3 (09:40→21:26)
[2021-04-19] MEDS: Multivit/Ca/Min/Fe/FA 1 TAB TABLET PO SCH (09:40)
[2021-04-19] MEDS: amLODIPine 5 MG TABLET PO SCH (09:40)
[2021-04-19] MEDS: *HR* GlyBURIDE 5 MG TABLET PO SCH ×2 (09:40→21:26)
[2021-04-19] MEDS: *HR* Metformin 500 MG TABLET PO SCH ×2 (09:40→21:26)
[2021-04-20] MEDS: Furosemide 20 MG TABLET PO SCH (06:04)
[2021-04-20] MEDS: *HR* Enoxaparin 40 MG/0.4 ML SYRINGE SQ SCH (06:04)
[2021-04-20] MEDS: Insulin LISPRO 300 UNITS/3 ML VIAL SUBQ SCH ×4 (08:17→21:08)
[2021-04-20] MEDS: cloNIDine HCL 0.1 MG TABLET PO SCH ×3 (08:55→21:09)
[2021-04-20] MEDS: Isosorbide MONOnitrate (24 HR) 30 MG TAB.ER.24H PO SCH (08:55)
[2021-04-20] MEDS: Aspirin Enteric Coated 81 MG Tablet PO SCH (08:55)
[2021-04-20] MEDS: Multivit/Ca/Min/Fe/FA 1 TAB TABLET PO SCH (08:55)
[2021-04-20] MEDS: *HR* Metformin 500 MG TABLET PO SCH ×2 (08:55→21:09)
[2021-04-20] MEDS: amLODIPine 5 MG TABLET PO SCH (08:55)
[2021-04-20] MEDS: *HR* GlyBURIDE 5 MG TABLET PO SCH ×2 (08:56→21:09)
[2021-04-20] MEDS ORDERED: traZODone 50 MG TABLET PO ONE (21:00)
[2021-04-21] MEDS: *HR* Enoxaparin 40 MG/0.4 ML SYRINGE SQ SCH (05:38)
[2021-04-21] MEDS: Furosemide 20 MG TABLET PO SCH (05:38)
[2021-04-21] MEDS: Insulin LISPRO 300 UNITS/3 ML VIAL SUBQ SCH ×4 (08:06→21:51)
[2021-04-21] MEDS: Aspirin Enteric Coated 81 MG Tablet PO SCH (09:40)
[2021-04-21] MEDS: *HR* Metformin 500 MG TABLET PO SCH ×2 (09:41→21:52)
[2021-04-21] MEDS: *HR* GlyBURIDE 5 MG TABLET PO SCH ×2 (09:41→21:52)
[2021-04-21] MEDS: amLODIPine 5 MG TABLET PO SCH (09:41)
[2021-04-21] MEDS: Isosorbide MONOnitrate (24 HR) 30 MG TAB.ER.24H PO SCH (09:42)
[2021-04-21] MEDS: cloNIDine HCL 0.1 MG TABLET PO SCH ×3 (09:42→21:52)
[2021-04-21] MEDS: Multivit/Ca/Min/Fe/FA 1 TAB TABLET PO SCH (09:42)
[2021-04-21] MEDS: Melatonin 3 MG TABLET PO PRN (21:58)
[2021-04-22] MEDS: Furosemide 20 MG TABLET PO SCH (06:16)
[2021-04-22] MEDS: *HR* Enoxaparin 40 MG/0.4 ML SYRINGE SQ SCH (06:17)
[2021-04-22] MEDS: *HR* OxyCODONE/APAP 10/325 TABLET PO PRN (06:19)
[2021-04-22] MEDS: Insulin LISPRO 300 UNITS/3 ML VIAL SUBQ SCH ×4 (07:43→21:19)
[2021-04-22] MEDS: *HR* GlyBURIDE 5 MG TABLET PO SCH ×2 (09:20→20:59)
[2021-04-22] MEDS: *HR* Metformin 500 MG TABLET PO SCH ×2 (09:20→20:59)
[2021-04-22] MEDS: amLODIPine 5 MG TABLET PO SCH (09:20)
[2021-04-22] MEDS: Aspirin Enteric Coated 81 MG Tablet PO SCH (09:20)
[2021-04-22] MEDS: cloNIDine HCL 0.1 MG TABLET PO SCH ×3 (09:20→20:58)
[2021-04-22] MEDS: Multivit/Ca/Min/Fe/FA 1 TAB TABLET PO SCH (09:20)
[2021-04-22] MEDS: Isosorbide MONOnitrate (24 HR) 30 MG TAB.ER.24H PO SCH (09:20)
[2021-04-22 09:29] LABS: Basophils % 0.4 %; Eosinophils # 0.2 K/mcL (0.0-0.6); Eosinophils % 3.2 %; Hematocrit 28.6 % (35.3-44.9); Hemoglobin 9.3 g/dL (11.5-15.4); Immature Granulocytes % 0.4 % (0-4); Lymphocytes % 27.3 %; Mean Corpuscular HGB Conc 32.5 g/dL (31.6-35.5); Mean Corpuscular Hemoglobin 27.7 pg (28.0-33.3); Mean Corpuscular Volume 85.1 fL (83.0-100.0); Mean Platelet Volume 11.6 fL (9.4-12.4); Monocytes # 0.5 K/mcL (0.0-1.3); Monocytes % 6.7 %; Neutrophils # 4.6 K/mcL (1.6-8.9); Platelet Count 282 K/mcL (140-400); Red Blood Count 3.36 M/mcL (3.82-4.97); Red Cell Distribution Width 15.3 % (11.5-14.5); White Blood Count 7.4 K/mcL (4.3-11.1)
[2021-04-22 09:43] LABS: BUN/Creatinine Ratio 16 (6-26); Blood Urea Nitrogen 14 mg/dL (8-23); Calcium 9.2 mg/dL (8.6-10.3); Carbon Dioxide 26 mEq/L (23-29); Chloride 99 mEq/L (98-107); Glucose 92 mg/dL (70-105); Osmolality,Calculated 276 (280-300); Potassium 3.8 mEq/L (3.5-5.1); Sodium 133 mEq/L (136-145); eGFR For African Americans > 60 (> 60); eGFR For Non-African Americans > 60 (> 60)
[2021-04-22] MEDS: Melatonin 3 MG TABLET PO PRN (20:58)
[2021-04-23] MEDS: *HR* Enoxaparin 40 MG/0.4 ML SYRINGE SQ SCH (06:24)
[2021-04-23] MEDS: *HR* Metformin 500 MG TABLET PO SCH ×2 (09:34→21:05)
[2021-04-23] MEDS: Furosemide 20 MG TABLET PO SCH (09:34)
[2021-04-23] MEDS: *HR* GlyBURIDE 5 MG TABLET PO SCH ×2 (09:34→21:05)
[2021-04-23] MEDS: amLODIPine 5 MG TABLET PO SCH (09:34)
[2021-04-23] MEDS: Multivit/Ca/Min/Fe/FA 1 TAB TABLET PO SCH (09:34)
[2021-04-23] MEDS: Isosorbide MONOnitrate (24 HR) 30 MG TAB.ER.24H PO SCH (09:35)
[2021-04-23] MEDS: cloNIDine HCL 0.1 MG TABLET PO SCH ×3 (09:35→21:34)
[2021-04-23] MEDS: Aspirin Enteric Coated 81 MG Tablet PO SCH (09:35)
[2021-04-23] MEDS: Insulin LISPRO 300 UNITS/3 ML VIAL SUBQ SCH ×4 (09:36→21:06)
[2021-04-23] MEDS: *HR* OxyCODONE/APAP 10/325 TABLET PO PRN (10:59)
[2021-04-23] MEDS: Ondansetron ODT 4 MG TAB.RAPDIS SL PRN (14:35)
[2021-04-23 20:44] LABS: Bilirubin,Urine Negative (Negative); Blood,Urine Negative (Negative); Clarity,Urine Clear (Clear); Color,Urine Yellow (Yellow); Glucose,Urine (UA) Normal (Normal); Ketones,Urine Negative (Negative); Leukocyte Esterase,Urine Moderate (Negative); Nitrite,Urine Negative (Negative); Protein,Urine Negative (Neg-Trace); Specific Gravity,Urine 1.015 (1.010-1.025); Urobilinogen,Urine Normal (Normal)
[2021-04-23 21:34] LABS: WBC,Urine 15-30 per hpf (0-3)
[2021-04-23] MEDS: Melatonin 3 MG TABLET PO PRN (21:34)
[2021-04-23 21:35] LABS: Squamous Epithelial Cell,Urine Few per hpf (None-Few)
[2021-04-24] MEDS: *HR* Enoxaparin 40 MG/0.4 ML SYRINGE SQ SCH (05:37)
[2021-04-24] MEDS: Furosemide 20 MG TABLET PO SCH (05:37)
[2021-04-24] MEDS: Insulin LISPRO 300 UNITS/3 ML VIAL SUBQ SCH ×4 (09:42→20:54)
[2021-04-24] MEDS: *HR* GlyBURIDE 5 MG TABLET PO SCH ×2 (09:43→21:09)
[2021-04-24] MEDS: Aspirin Enteric Coated 81 MG Tablet PO SCH (09:43)
[2021-04-24] MEDS: *HR* Metformin 500 MG TABLET PO SCH ×2 (09:44→21:10)
[2021-04-24] MEDS: Multivit/Ca/Min/Fe/FA 1 TAB TABLET PO SCH (09:44)
[2021-04-24] MEDS: cloNIDine HCL 0.1 MG TABLET PO SCH ×3 (09:44→21:57)
[2021-04-24] MEDS: amLODIPine 5 MG TABLET PO SCH (09:44)
[2021-04-24] MEDS: Isosorbide MONOnitrate (24 HR) 30 MG TAB.ER.24H PO SCH (09:45)
[2021-04-24] MEDS: tiZANidine 4 MG TABLET PO PRN ×2 (13:20→21:58)
[2021-04-24] MEDS: Cefdinir 300 MG CAPSULE PO SCH (17:14)
[2021-04-24] MEDS: Melatonin 3 MG TABLET PO PRN (21:09)
[2021-04-25] MEDS: *HR* Enoxaparin 40 MG/0.4 ML SYRINGE SQ SCH (06:02)
[2021-04-25] MEDS: Cefdinir 300 MG CAPSULE PO SCH ×2 (06:03→16:32)
[2021-04-25] MEDS: Furosemide 20 MG TABLET PO SCH (06:03)
[2021-04-25] MEDS: Insulin LISPRO 300 UNITS/3 ML VIAL SUBQ SCH ×4 (08:46→20:42)
[2021-04-25] MEDS: *HR* Metformin 500 MG TABLET PO SCH ×2 (08:55→21:30)
[2021-04-25] MEDS: amLODIPine 5 MG TABLET PO SCH (08:55)
[2021-04-25] MEDS: cloNIDine HCL 0.1 MG TABLET PO SCH ×3 (08:55→21:30)
[2021-04-25] MEDS: Aspirin Enteric Coated 81 MG Tablet PO SCH (08:55)
[2021-04-25] MEDS: *HR* GlyBURIDE 5 MG TABLET PO SCH ×2 (08:55→21:30)
[2021-04-25] MEDS: Multivit/Ca/Min/Fe/FA 1 TAB TABLET PO SCH (08:55)
[2021-04-25] MEDS: Isosorbide MONOnitrate (24 HR) 30 MG TAB.ER.24H PO SCH (08:55)
[2021-04-25] MEDS: tiZANidine 4 MG TABLET PO PRN (14:37)
[2021-04-25] MEDS: Melatonin 3 MG TABLET PO PRN (21:30)
[2021-04-25] MEDS: Sennosides/Docusate Sodium TABLET PO PRN (21:30)
[2021-04-26] MEDS: Furosemide 20 MG TABLET PO SCH (05:11)
[2021-04-26] MEDS: Cefdinir 300 MG CAPSULE PO SCH ×2 (06:40→18:36)
[2021-04-26] MEDS: *HR* Enoxaparin 40 MG/0.4 ML SYRINGE SQ SCH (06:41)
[2021-04-26] MEDS: tiZANidine 4 MG TABLET PO PRN (07:14)
[2021-04-26] MEDS: Insulin LISPRO 300 UNITS/3 ML VIAL SUBQ SCH ×4 (08:19→23:15)
[2021-04-26] MEDS: *HR* GlyBURIDE 5 MG TABLET PO SCH ×2 (08:19→22:00)
[2021-04-26] MEDS: amLODIPine 5 MG TABLET PO SCH (08:20)
[2021-04-26] MEDS: Multivit/Ca/Min/Fe/FA 1 TAB TABLET PO SCH (08:21)
[2021-04-26] MEDS: cloNIDine HCL 0.1 MG TABLET PO SCH ×3 (08:21→22:00)
[2021-04-26] MEDS: *HR* Metformin 500 MG TABLET PO SCH ×2 (08:22→21:59)
[2021-04-26] MEDS: Aspirin Enteric Coated 81 MG Tablet PO SCH (08:22)
[2021-04-26] MEDS: Isosorbide MONOnitrate (24 HR) 30 MG TAB.ER.24H PO SCH (08:22)
[2021-04-26] MEDS: Ondansetron ODT 4 MG TAB.RAPDIS SL PRN (15:33)
[2021-04-26] MEDS: Melatonin 3 MG TABLET PO PRN (21:59)
[2021-04-26] MEDS: Sennosides/Docusate Sodium TABLET PO PRN (21:59)
[2021-04-27] MEDS: Furosemide 20 MG TABLET PO SCH (06:07)
[2021-04-27] MEDS: *HR* Enoxaparin 40 MG/0.4 ML SYRINGE SQ SCH (06:08)
[2021-04-27] MEDS: Cefdinir 300 MG CAPSULE PO SCH ×2 (06:08→17:15)
[2021-04-27] MEDS: Aspirin Enteric Coated 81 MG Tablet PO SCH (08:48)
[2021-04-27] MEDS: cloNIDine HCL 0.1 MG TABLET PO SCH ×3 (08:48→21:36)
[2021-04-27] MEDS: amLODIPine 5 MG TABLET PO SCH (08:48)
[2021-04-27] MEDS: Multivit/Ca/Min/Fe/FA 1 TAB TABLET PO SCH (08:48)
[2021-04-27] MEDS: Insulin LISPRO 300 UNITS/3 ML VIAL SUBQ SCH ×4 (08:49→21:50)
[2021-04-27] MEDS: Isosorbide MONOnitrate (24 HR) 30 MG TAB.ER.24H PO SCH (08:49)
[2021-04-27] MEDS: Sennosides/Docusate Sodium TABLET PO PRN ×2 (08:49→21:41)
[2021-04-27] MEDS: *HR* Metformin 500 MG TABLET PO SCH ×2 (08:51→21:50)
[2021-04-27] MEDS: tiZANidine 4 MG TABLET PO PRN (14:31)
[2021-04-27] MEDS: Melatonin 3 MG TABLET PO PRN (21:36)
[2021-04-28] MEDS: Cefdinir 300 MG CAPSULE PO SCH ×2 (06:08→18:05)
[2021-04-28] MEDS: *HR* Enoxaparin 40 MG/0.4 ML SYRINGE SQ SCH (06:08)
[2021-04-28] MEDS: Furosemide 20 MG TABLET PO SCH (06:10)
[2021-04-28] MEDS: Insulin LISPRO 300 UNITS/3 ML VIAL SUBQ SCH ×4 (08:15→21:31)
[2021-04-28] MEDS: Sennosides/Docusate Sodium TABLET PO PRN (08:19)
[2021-04-28] MEDS: Isosorbide MONOnitrate (24 HR) 30 MG TAB.ER.24H PO SCH (08:19)
[2021-04-28] MEDS: amLODIPine 5 MG TABLET PO SCH (08:19)
[2021-04-28] MEDS: Multivit/Ca/Min/Fe/FA 1 TAB TABLET PO SCH (08:19)
[2021-04-28] MEDS: Aspirin Enteric Coated 81 MG Tablet PO SCH (08:19)
[2021-04-28] MEDS: cloNIDine HCL 0.1 MG TABLET PO SCH ×3 (08:19→21:31)
[2021-04-28] MEDS: *HR* Metformin 500 MG TABLET PO SCH ×2 (08:19→21:31)
[2021-04-28] MEDS: Melatonin 3 MG TABLET PO PRN (21:33)
[2021-04-29] MEDS: Furosemide 20 MG TABLET PO SCH (06:09)
[2021-04-29] MEDS: Cefdinir 300 MG CAPSULE PO SCH ×2 (06:10→17:58)
[2021-04-29] MEDS: *HR* Enoxaparin 40 MG/0.4 ML SYRINGE SQ SCH (06:10)
[2021-04-29] MEDS: Aspirin Enteric Coated 81 MG Tablet PO SCH (09:39)
[2021-04-29] MEDS: cloNIDine HCL 0.1 MG TABLET PO SCH ×3 (09:39→21:33)
[2021-04-29] MEDS: amLODIPine 5 MG TABLET PO SCH (09:39)
[2021-04-29] MEDS: Multivit/Ca/Min/Fe/FA 1 TAB TABLET PO SCH (09:39)
[2021-04-29] MEDS: Isosorbide MONOnitrate (24 HR) 30 MG TAB.ER.24H PO SCH (09:39)
[2021-04-29] MEDS: Insulin LISPRO 300 UNITS/3 ML VIAL SUBQ SCH ×4 (09:41→21:34)
[2021-04-29] MEDS: *HR* Metformin 500 MG TABLET PO SCH ×2 (09:41→21:33)
[2021-04-29] MEDS: Melatonin 3 MG TABLET PO PRN (21:33)
[2021-04-29] MEDS: Sennosides/Docusate Sodium TABLET PO PRN (21:34)
[2021-04-30] MEDS: Furosemide 20 MG TABLET PO SCH (05:45)
[2021-04-30] MEDS: Cefdinir 300 MG CAPSULE PO SCH ×2 (05:46→17:06)
[2021-04-30] MEDS: *HR* Enoxaparin 40 MG/0.4 ML SYRINGE SQ SCH (05:46)
[2021-04-30 08:03] LABS: Basophils % 0.3 %; Eosinophils # 0.3 K/mcL (0.0-0.6); Eosinophils % 3.9 %; Hematocrit 28.5 % (35.3-44.9); Hemoglobin 9.3 g/dL (11.5-15.4); Immature Granulocytes % 0.3 % (0-4); Lymphocytes # 1.6 K/mcL (0.6-4.6); Lymphocytes % 25.4 %; Mean Corpuscular HGB Conc 32.6 g/dL (31.6-35.5); Mean Corpuscular Volume 85.8 fL (83.0-100.0); Mean Platelet Volume 11.6 fL (9.4-12.4); Monocytes # 0.5 K/mcL (0.0-1.3); Monocytes % 7.9 %; Platelet Count 218 K/mcL (140-400); Red Blood Count 3.32 M/mcL (3.82-4.97); Segmented Neutrophils % 62.2 %; White Blood Count 6.5 K/mcL (4.3-11.1)
[2021-04-30 08:15] LABS: BUN/Creatinine Ratio 15 (6-26); Blood Urea Nitrogen 15 mg/dL (8-23); Carbon Dioxide 27 mEq/L (23-29); Chloride 99 mEq/L (98-107); Glucose 122 mg/dL (70-105); Osmolality,Calculated 278 (280-300); Potassium 4.3 mEq/L (3.5-5.1); Sodium 133 mEq/L (136-145); eGFR For African Americans > 60 (> 60); eGFR For Non-African Americans 53 (> 60)
[2021-04-30] MEDS: Insulin LISPRO 300 UNITS/3 ML VIAL SUBQ SCH ×4 (09:00→21:24)
[2021-04-30] MEDS: Multivit/Ca/Min/Fe/FA 1 TAB TABLET PO SCH (09:11)
[2021-04-30] MEDS: cloNIDine HCL 0.1 MG TABLET PO SCH ×3 (09:12→21:22)
[2021-04-30] MEDS: amLODIPine 5 MG TABLET PO SCH (09:12)
[2021-04-30] MEDS: Isosorbide MONOnitrate (24 HR) 30 MG TAB.ER.24H PO SCH (09:12)
[2021-04-30] MEDS: Aspirin Enteric Coated 81 MG Tablet PO SCH (09:12)
[2021-04-30] MEDS: *HR* Metformin 500 MG TABLET PO SCH ×2 (09:12→21:22)
[2021-04-30] MEDS: tiZANidine 4 MG TABLET PO PRN (16:08)
[2021-04-30] MEDS: Melatonin 3 MG TABLET PO PRN (21:22)
[2021-05-01] MEDS: Ondansetron ODT 4 MG TAB.RAPDIS SL PRN ×2 (03:13→18:01)
[2021-05-01] MEDS: *HR* Enoxaparin 40 MG/0.4 ML SYRINGE SQ SCH (05:59)
[2021-05-01] MEDS: Furosemide 20 MG TABLET PO SCH ×2 (06:12→20:57)
[2021-05-01] MEDS: Insulin LISPRO 300 UNITS/3 ML VIAL SUBQ SCH ×4 (07:20→20:54)
[2021-05-01] MEDS: Aspirin Enteric Coated 81 MG Tablet PO SCH (09:20)
[2021-05-01] MEDS: cloNIDine HCL 0.1 MG TABLET PO SCH ×3 (09:20→20:27)
[2021-05-01] MEDS: amLODIPine 5 MG TABLET PO SCH (09:20)
[2021-05-01] MEDS: Multivit/Ca/Min/Fe/FA 1 TAB TABLET PO SCH (09:20)
[2021-05-01] MEDS: Isosorbide MONOnitrate (24 HR) 30 MG TAB.ER.24H PO SCH (09:21)
[2021-05-01] MEDS: *HR* Metformin 500 MG TABLET PO SCH ×2 (09:21→20:53)
[2021-05-02] MEDS: *HR* Enoxaparin 40 MG/0.4 ML SYRINGE SQ SCH (06:12)
[2021-05-02] MEDS: Insulin LISPRO 300 UNITS/3 ML VIAL SUBQ SCH ×4 (08:26→20:21)
[2021-05-02] MEDS: *HR* Metformin 500 MG TABLET PO SCH ×2 (08:49→20:22)
[2021-05-02] MEDS: Isosorbide MONOnitrate (24 HR) 30 MG TAB.ER.24H PO SCH (08:49)
[2021-05-02] MEDS: Aspirin Enteric Coated 81 MG Tablet PO SCH (08:49)
[2021-05-02] MEDS: Multivit/Ca/Min/Fe/FA 1 TAB TABLET PO SCH (08:49)
[2021-05-02] MEDS: cloNIDine HCL 0.1 MG TABLET PO SCH ×3 (08:49→20:22)
[2021-05-02] MEDS: amLODIPine 5 MG TABLET PO SCH (08:49)
[2021-05-02] MEDS: Ondansetron ODT 4 MG TAB.RAPDIS SL PRN (19:24)
[2021-05-02] MEDS: Sennosides/Docusate Sodium TABLET PO PRN (21:31)
[2021-05-03] MEDS: Furosemide 20 MG TABLET PO SCH (05:04)
[2021-05-03] MEDS: *HR* Enoxaparin 40 MG/0.4 ML SYRINGE SQ SCH (06:01)
[2021-05-03] MEDS: amLODIPine 5 MG TABLET PO SCH (08:21)
[2021-05-03] MEDS: Aspirin Enteric Coated 81 MG Tablet PO SCH (08:22)
[2021-05-03] MEDS: *HR* Metformin 500 MG TABLET PO SCH ×2 (08:23→21:09)
[2021-05-03] MEDS: Isosorbide MONOnitrate (24 HR) 30 MG TAB.ER.24H PO SCH (08:23)
[2021-05-03] MEDS: Multivit/Ca/Min/Fe/FA 1 TAB TABLET PO SCH (08:23)
[2021-05-03] MEDS: cloNIDine HCL 0.1 MG TABLET PO SCH ×3 (08:24→21:09)
[2021-05-03] MEDS: Insulin LISPRO 300 UNITS/3 ML VIAL SUBQ SCH ×4 (08:25→21:09)
[2021-05-03 19:20] VITALS: PULSE 54; TEMP 97.8
[2021-05-03] MEDS: tiZANidine 4 MG TABLET PO PRN (21:09)
[2021-05-03] MEDS: Sennosides/Docusate Sodium TABLET PO PRN (21:12)
[2021-05-04] MEDS: Furosemide 20 MG TABLET PO SCH (01:11)
[2021-05-04] MEDS: *HR* Enoxaparin 40 MG/0.4 ML SYRINGE SQ SCH (06:21)
[2021-05-04 08:34] VITALS: BP 166/75; RESP 14; O2SAT 94
[2021-05-04] MEDS: Insulin LISPRO 300 UNITS/3 ML VIAL SUBQ SCH (09:14)
[2021-05-04] MEDS: Ondansetron ODT 4 MG TAB.RAPDIS SL PRN (09:30)
[2021-05-04] MEDS: Isosorbide MONOnitrate (24 HR) 30 MG TAB.ER.24H PO SCH (09:30)
[2021-05-04] MEDS: Aspirin Enteric Coated 81 MG Tablet PO SCH (09:30)
[2021-05-04] MEDS: amLODIPine 5 MG TABLET PO SCH (09:30)
[2021-05-04] MEDS: *HR* Metformin 500 MG TABLET PO SCH (09:30)
[2021-05-04] MEDS: Multivit/Ca/Min/Fe/FA 1 TAB TABLET PO SCH (09:30)
[2021-05-04] MEDS: cloNIDine HCL 0.1 MG TABLET PO SCH (09:31)
== END 2021-05-04 12:05 | disposition home health service (06) | DRG 559 ==
LOC: INPPIK 18:16
PROVIDERS: ADMIT Family Medicine; ATTEND Family Medicine

== ENCOUNTER 2021-05-07 13:58 | Inpatient (IN) ==
[2021-05-08] MEDS: hydrALAZINE 25 MG TABLET PO SCH ×4 (01:14→16:08)
[2021-05-08 07:40] LABS: Basophils % 0.5 %; Eosinophils # 0.2 K/mcL (0.0-0.6); Eosinophils % 2.9 %; Hematocrit 29.1 % (35.3-44.9); Hemoglobin 9.9 g/dL (11.5-15.4); Immature Granulocytes % 0.7 % (0-4); Lymphocytes # 1.2 K/mcL (0.6-4.6); Lymphocytes % 20.3 %; Mean Corpuscular Volume 85.3 fL (83.0-100.0); Mean Platelet Volume 11.1 fL (9.4-12.4); Monocytes # 0.6 K/mcL (0.0-1.3); Monocytes % 9.3 %; Neutrophils # 4.1 K/mcL (1.6-8.9); Platelet Count 231 K/mcL (140-400); Red Blood Count 3.41 M/mcL (3.82-4.97); Red Cell Distribution Width 16.4 % (11.5-14.5); Segmented Neutrophils % 66.3 %; White Blood Count 6.1 K/mcL (4.3-11.1)
[2021-05-08 07:50] LABS: BUN/Creatinine Ratio 10 (6-26); Blood Urea Nitrogen 8 mg/dL (8-23); Calcium 8.9 mg/dL (8.6-10.3); Carbon Dioxide 24 mEq/L (23-29); Chloride 100 mEq/L (98-107); Glucose 126 mg/dL (70-105); Osmolality,Calculated 276 (280-300); Potassium 3.4 mEq/L (3.5-5.1); Sodium 133 mEq/L (136-145); eGFR For African Americans > 60 (> 60); eGFR For Non-African Americans > 60 (> 60)
[2021-05-08] MEDS ORDERED: cloNIDine HCL 0.1 MG TABLET PO ONE (08:01)
[2021-05-08] MEDS: Ondansetron ODT 4 MG TAB.RAPDIS SL PRN (08:42)
[2021-05-08] MEDS: amLODIPine 5 MG TABLET PO SCH (08:42)
[2021-05-08] MEDS: Multivit/Ca/Min/Fe/FA 1 TAB TABLET PO SCH (08:42)
[2021-05-08] MEDS: Aspirin Enteric Coated 81 MG Tablet PO SCH (08:42)
[2021-05-08] MEDS ORDERED: Bisacodyl 10 MG RECTAL SUPPOSITORY RC SCH (13:00)
[2021-05-09] MEDS: hydrALAZINE 25 MG TABLET PO SCH ×3 (00:11→16:46)
[2021-05-09] MEDS: amLODIPine 5 MG TABLET PO SCH (08:47)
[2021-05-09] MEDS: Multivit/Ca/Min/Fe/FA 1 TAB TABLET PO SCH (08:47)
[2021-05-09] MEDS: Aspirin Enteric Coated 81 MG Tablet PO SCH (08:47)
[2021-05-09] MEDS ORDERED: Lactulose Oral Soln 20 GM/30 ML UDC PO PRN (17:58)
[2021-05-09] MEDS ORDERED: Bisacodyl 10 MG RECTAL SUPPOSITORY RC PRN (17:58)
[2021-05-09] MEDS: Sennosides/Docusate Sodium TABLET PO SCH (23:02)
[2021-05-10] MEDS: hydrALAZINE 25 MG TABLET PO SCH ×3 (01:05→14:43)
[2021-05-10] MEDS: Ondansetron ODT 4 MG TAB.RAPDIS SL PRN ×2 (07:30→14:43)
[2021-05-10] MEDS: amLODIPine 5 MG TABLET PO SCH (10:59)
[2021-05-10] MEDS: polyethylene glycoL 3350 17 GM POWD.PACK PO SCH (10:59)
[2021-05-10] MEDS: Sennosides/Docusate Sodium TABLET PO SCH ×2 (10:59→20:22)
[2021-05-10] MEDS: Aspirin Enteric Coated 81 MG Tablet PO SCH (11:00)
[2021-05-10] MEDS: Multivit/Ca/Min/Fe/FA 1 TAB TABLET PO SCH (11:01)
[2021-05-10] MEDS ORDERED: Ondansetron ODT 4 MG TAB.RAPDIS SL PRN (19:31)
[2021-05-10] MEDS ORDERED: Metoclopramide 10 MG/2 ML VIAL IVP PRN (19:55)
[2021-05-11] MEDS: hydrALAZINE 25 MG TABLET PO SCH ×3 (00:01→15:58)
[2021-05-11] MEDS: Sennosides/Docusate Sodium TABLET PO SCH ×2 (10:04→20:18)
[2021-05-11] MEDS: Multivit/Ca/Min/Fe/FA 1 TAB TABLET PO SCH (10:04)
[2021-05-11] MEDS: amLODIPine 5 MG TABLET PO SCH (10:05)
[2021-05-11] MEDS: Aspirin Enteric Coated 81 MG Tablet PO SCH (10:06)
[2021-05-11] MEDS: polyethylene glycoL 3350 17 GM POWD.PACK PO SCH (10:07)
[2021-05-11] MEDS ORDERED: Metoclopramide 10 MG/2 ML VIAL IVP ONE (10:22)
[2021-05-11] MEDS ORDERED: rOPINIRole 1 MG TABLET PO PRN (17:05)
[2021-05-12] MEDS: hydrALAZINE 25 MG TABLET PO SCH ×3 (00:54→10:04)
[2021-05-12 04:35] LABS: Basophils % 0.3 %; Eosinophils # 0.2 K/mcL (0.0-0.6); Eosinophils % 2.7 %; Hematocrit 19.7 % (35.3-44.9); Hemoglobin 6.4 g/dL (11.5-15.4); Immature Granulocytes % 0.3 % (0-4); Lymphocytes % 33.7 %; Mean Corpuscular HGB Conc 32.5 g/dL (31.6-35.5); Mean Corpuscular Hemoglobin 27.8 pg (28.0-33.3); Mean Corpuscular Volume 85.7 fL (83.0-100.0); Mean Platelet Volume 10.9 fL (9.4-12.4); Monocytes # 0.6 K/mcL (0.0-1.3); Monocytes % 6.6 %; Platelet Count 205 K/mcL (140-400); Red Cell Distribution Width 17.1 % (11.5-14.5); Segmented Neutrophils % 56.4 %; White Blood Count 8.8 K/mcL (4.3-11.1)
[2021-05-12] MEDS ORDERED: Nitroglycerin 0.4 MG TAB.SUBL SL PRN (04:50)
[2021-05-12] MEDS ORDERED: Aspirin 325 MG TABLET PO ONE (04:50)
[2021-05-12 04:54] LABS: Alanine Aminotransferase 12 Units/L (7-52); Albumin 3.4 g/dL (3.5-5.7); Albumin/Globulin Ratio 1.3 (1.1-2.2); Alkaline Phosphatase 76 Units/L (34-104); Aspartate Amino Transferase 14 Units/L (13-39); BUN/Creatinine Ratio 36 (6-26); Bilirubin,Total 0.4 mg/dL (0.3-1.0); Blood Urea Nitrogen 40 mg/dL (8-23); Calcium 8.8 mg/dL (8.6-10.3); Carbon Dioxide 24 mEq/L (23-29); Chloride 99 mEq/L (98-107); Globulin 2.7 g/dL (2.4-3.5); Glucose 151 mg/dL (70-105); Osmolality,Calculated 289 (280-300); Potassium 3.9 mEq/L (3.5-5.1); Sodium 133 mEq/L (136-145); Total Protein 6.1 g/dL (6.4-8.9); eGFR For African Americans 57 (> 60); eGFR For Non-African Americans 47 (> 60)
[2021-05-12 04:55] LABS: Troponin I < 0.03 ng/mL (< 0.04)
[2021-05-12 06:22] LABS: Basophils % 0.4 %; Eosinophils # 0.2 K/mcL (0.0-0.6); Hematocrit 17.6 % (35.3-44.9); Immature Granulocytes % 0.3 % (0-4); Lymphocytes # 1.8 K/mcL (0.6-4.6); Lymphocytes % 24.7 %; Mean Corpuscular HGB Conc 33.5 g/dL (31.6-35.5); Mean Corpuscular Hemoglobin 28.5 pg (28.0-33.3); Monocytes # 0.4 K/mcL (0.0-1.3); Neutrophils # 4.9 K/mcL (1.6-8.9); Platelet Count 189 K/mcL (140-400); Red Blood Count 2.07 M/mcL (3.82-4.97); Red Cell Distribution Width 17.1 % (11.5-14.5); Segmented Neutrophils % 66.6 %; White Blood Count 7.4 K/mcL (4.3-11.1)
[2021-05-12 06:25] LABS: Hemoglobin 5.9 g/dL (11.5-15.4)
[2021-05-12 08:08] VITALS: TEMP 98.4
[2021-05-12 08:17] LABS: Platelet Estimate Normal (Normal)
[2021-05-12] MEDS ORDERED: Isovue-370 500 ML BOTTLE IVP ONE (08:56)
[2021-05-12] MEDS: Multivit/Ca/Min/Fe/FA 1 TAB TABLET PO SCH ×2 (09:22→10:04)
[2021-05-12] MEDS: amLODIPine 5 MG TABLET PO SCH ×2 (09:22→10:04)
[2021-05-12] MEDS: Sennosides/Docusate Sodium TABLET PO SCH ×2 (09:22→10:04)
[2021-05-12] MEDS: polyethylene glycoL 3350 17 GM POWD.PACK PO SCH ×2 (09:22→10:04)
[2021-05-12] MEDS ORDERED: Nitroglycerin 1 INCH/GM PACKET TP ONE (09:55)
[2021-05-12] MEDS ORDERED: Nitroglycerin 1 INCH/GM PACKET ONE (09:56)
[2021-05-12 10:06] VITALS: RESP 90
[2021-05-12 10:20] VITALS: O2SAT 99
[2021-05-12] MEDS ORDERED: Ondansetron 4 MG/2 ML VIAL IVP ONE (10:22)
[2021-05-12] MEDS ORDERED: Ondansetron 4 MG/2 ML VIAL ONE (10:23)
[2021-05-12 10:25] VITALS: BP 142/63; PULSE 98
[2021-05-12] MEDS ORDERED: Pantoprazole 40 MG VIAL IVP SCH (18:00)
[2021-05-13] MEDS ORDERED: Aspirin Enteric Coated 81 MG Tablet PO SCH (09:00)
== END 2021-05-12 10:33 | disposition short-term general hospital (02) | DRG 560 ==
LOC: INPPIK 05-08 00:02
PROVIDERS: ADMIT Family Medicine; ATTEND Family Medicine

== ENCOUNTER 2021-05-14 17:10 | Inpatient (IN) ==
[2021-05-15] MEDS ORDERED: Ondansetron ODT 4 MG TAB.RAPDIS SL PRN (14:47)
[2021-05-15] MEDS ORDERED: *HR* OxyCODONE Immed Rel 5 MG TABLET PO PRN (14:47)
[2021-05-16] MEDS: rOPINIRole 1 MG TABLET PO SCH ×4 (02:01→21:25)
[2021-05-16] MEDS: hydrALAZINE 25 MG TABLET PO SCH ×3 (02:05→15:25)
[2021-05-16] MEDS: Aspirin Enteric Coated 81 MG Tablet PO SCH (08:00)
[2021-05-16] MEDS: Multivit/Ca/Min/Fe/FA 1 TAB TABLET PO SCH (08:00)
[2021-05-16] MEDS ORDERED: *HR* Metformin 500 MG TABLET PO SCH (08:00)
[2021-05-16] MEDS: *HR* GlyBURIDE 5 MG TABLET PO SCH (08:01)
[2021-05-16 08:37] LABS: Hematocrit 28.1 % (35.3-44.9); Hemoglobin 9.5 g/dL (11.5-15.4); Mean Corpuscular HGB Conc 33.8 g/dL (31.6-35.5); Mean Corpuscular Hemoglobin 29.3 pg (28.0-33.3); Mean Corpuscular Volume 86.7 fL (83.0-100.0); Mean Platelet Volume 10.9 fL (9.4-12.4); Platelet Count 231 K/mcL (140-400); Red Blood Count 3.24 M/mcL (3.82-4.97); Red Cell Distribution Width 15.1 % (11.5-14.5); White Blood Count 6.9 K/mcL (4.3-11.1)
[2021-05-16] MEDS ORDERED: NIFEdipine XL (24 HR) 60 MG TAB.ER.24 PO SCH (09:00)
[2021-05-16 09:01] LABS: Alanine Aminotransferase 10 Units/L (7-52); Albumin/Globulin Ratio 1.1 (1.1-2.2); Alkaline Phosphatase 80 Units/L (34-104); Aspartate Amino Transferase 12 Units/L (13-39); BUN/Creatinine Ratio 8 (6-26); Bilirubin,Total 0.5 mg/dL (0.3-1.0); Blood Urea Nitrogen 6 mg/dL (8-23); Calcium 8.5 mg/dL (8.6-10.3); Carbon Dioxide 26 mEq/L (23-29); Chloride 100 mEq/L (98-107); Globulin 2.7 g/dL (2.4-3.5); Glucose 148 mg/dL (70-105); Osmolality,Calculated 276 (280-300); Potassium 3.5 mEq/L (3.5-5.1); Sodium 133 mEq/L (136-145); Total Protein 5.7 g/dL (6.4-8.9); eGFR For African Americans > 60 (> 60); eGFR For Non-African Americans > 60 (> 60)
[2021-05-16] MEDS: NIFEdipine XL (24 HR) 30 MG TAB.ER.24 PO SCH (09:20)
[2021-05-16] MEDS: Metoclopramide 10 MG/2 ML VIAL IVP SCH ×3 (11:40→21:25)
[2021-05-16] MEDS ORDERED: Dextrose Gel 15 GM/37.5 ML TUBE PO PRN ×2 (13:21)
[2021-05-16] MEDS ORDERED: *HR* Dextrose 50 % in Water (Vial) 50 ML VIAL IVP PRN (13:21)
[2021-05-16] MEDS ORDERED: D5% in Water 1,000 ML IVC PRN (13:21)
[2021-05-16] MEDS: Insulin LISPRO 300 UNITS/3 ML VIAL SUBQ SCH ×2 (16:43→21:50)
[2021-05-17] MEDS: hydrALAZINE 25 MG TABLET PO SCH ×3 (00:12→16:22)
[2021-05-17] MEDS: Insulin LISPRO 300 UNITS/3 ML VIAL SUBQ SCH ×4 (07:53→22:36)
[2021-05-17] MEDS: NIFEdipine XL (24 HR) 30 MG TAB.ER.24 PO SCH (08:02)
[2021-05-17] MEDS: Multivit/Ca/Min/Fe/FA 1 TAB TABLET PO SCH (08:03)
[2021-05-17] MEDS: Metoclopramide 10 MG/2 ML VIAL IVP SCH ×4 (08:03→20:19)
[2021-05-17] MEDS: Aspirin Enteric Coated 81 MG Tablet PO SCH (08:03)
[2021-05-17] MEDS: rOPINIRole 1 MG TABLET PO SCH ×3 (08:03→20:19)
[2021-05-17] MEDS: *HR* GlyBURIDE 5 MG TABLET PO SCH (08:03)
[2021-05-18] MEDS: hydrALAZINE 25 MG TABLET PO SCH ×4 (00:07→23:57)
[2021-05-18] MEDS: Insulin LISPRO 300 UNITS/3 ML VIAL SUBQ SCH ×4 (08:10→21:10)
[2021-05-18] MEDS: NIFEdipine XL (24 HR) 30 MG TAB.ER.24 PO SCH (08:16)
[2021-05-18] MEDS: rOPINIRole 1 MG TABLET PO SCH ×3 (08:16→21:09)
[2021-05-18] MEDS: *HR* GlyBURIDE 5 MG TABLET PO SCH (08:16)
[2021-05-18] MEDS: Multivit/Ca/Min/Fe/FA 1 TAB TABLET PO SCH (08:16)
[2021-05-18] MEDS: Aspirin Enteric Coated 81 MG Tablet PO SCH (08:16)
[2021-05-18] MEDS: Metoclopramide 10 MG/2 ML VIAL IVP SCH ×4 (08:17→21:09)
[2021-05-18 08:19] LABS: Basophils % 0.6 %; Eosinophils # 0.3 K/mcL (0.0-0.6); Eosinophils % 3.8 %; Hematocrit 27.9 % (35.3-44.9); Hemoglobin 9.2 g/dL (11.5-15.4); Immature Granulocytes % 0.6 % (0-4); Lymphocytes # 1.8 K/mcL (0.6-4.6); Lymphocytes % 25.8 %; Mean Corpuscular Hemoglobin 29.4 pg (28.0-33.3); Mean Corpuscular Volume 89.1 fL (83.0-100.0); Mean Platelet Volume 10.8 fL (9.4-12.4); Monocytes # 0.6 K/mcL (0.0-1.3); Monocytes % 8.6 %; Neutrophils # 4.3 K/mcL (1.6-8.9); Platelet Count 245 K/mcL (140-400); Red Blood Count 3.13 M/mcL (3.82-4.97); Red Cell Distribution Width 15.9 % (11.5-14.5); Segmented Neutrophils % 60.6 %; White Blood Count 7.1 K/mcL (4.3-11.1)
[2021-05-19] MEDS: Aspirin Enteric Coated 81 MG Tablet PO SCH (09:04)
[2021-05-19] MEDS: NIFEdipine XL (24 HR) 30 MG TAB.ER.24 PO SCH (09:04)
[2021-05-19] MEDS: Multivit/Ca/Min/Fe/FA 1 TAB TABLET PO SCH (09:04)
[2021-05-19] MEDS: hydrALAZINE 25 MG TABLET PO SCH ×3 (09:04→23:52)
[2021-05-19] MEDS: rOPINIRole 1 MG TABLET PO SCH ×3 (09:04→21:08)
[2021-05-19] MEDS: *HR* GlyBURIDE 5 MG TABLET PO SCH (09:04)
[2021-05-19] MEDS: Metoclopramide 10 MG/2 ML VIAL IVP SCH ×4 (09:05→21:07)
[2021-05-19] MEDS: Insulin LISPRO 300 UNITS/3 ML VIAL SUBQ SCH ×4 (09:05→21:08)
[2021-05-20] MEDS: *HR* GlyBURIDE 5 MG TABLET PO SCH (08:33)
[2021-05-20] MEDS: Metoclopramide 10 MG/2 ML VIAL IVP SCH (08:33)
[2021-05-20] MEDS: NIFEdipine XL (24 HR) 30 MG TAB.ER.24 PO SCH (08:34)
[2021-05-20] MEDS: rOPINIRole 1 MG TABLET PO SCH ×3 (08:34→20:19)
[2021-05-20] MEDS: Aspirin Enteric Coated 81 MG Tablet PO SCH (08:34)
[2021-05-20] MEDS: Multivit/Ca/Min/Fe/FA 1 TAB TABLET PO SCH (08:34)
[2021-05-20] MEDS: hydrALAZINE 25 MG TABLET PO SCH ×2 (08:34→17:39)
[2021-05-20] MEDS: Insulin LISPRO 300 UNITS/3 ML VIAL SUBQ SCH ×4 (08:35→20:20)
[2021-05-20 10:39] LABS: Basophils % 0.6 %; Eosinophils # 0.2 K/mcL (0.0-0.6); Eosinophils % 3.1 %; Hematocrit 30.3 % (35.3-44.9); Immature Granulocytes % 0.3 % (0-4); Lymphocytes # 1.7 K/mcL (0.6-4.6); Lymphocytes % 24.3 %; Mean Corpuscular Hemoglobin 29.5 pg (28.0-33.3); Mean Corpuscular Volume 89.4 fL (83.0-100.0); Mean Platelet Volume 10.8 fL (9.4-12.4); Monocytes # 0.5 K/mcL (0.0-1.3); Neutrophils # 4.6 K/mcL (1.6-8.9); Platelet Count 294 K/mcL (140-400); Red Blood Count 3.39 M/mcL (3.82-4.97); Segmented Neutrophils % 64.7 %; White Blood Count 7.2 K/mcL (4.3-11.1)
[2021-05-20 10:54] LABS: BUN/Creatinine Ratio 12 (6-26); Blood Urea Nitrogen 11 mg/dL (8-23); Calcium 8.8 mg/dL (8.6-10.3); Carbon Dioxide 25 mEq/L (23-29); Chloride 102 mEq/L (98-107); Glucose 187 mg/dL (70-105); Osmolality,Calculated 284 (280-300); Potassium 3.5 mEq/L (3.5-5.1); Sodium 135 mEq/L (136-145); eGFR For African Americans > 60 (> 60); eGFR For Non-African Americans > 60 (> 60)
[2021-05-21] MEDS: hydrALAZINE 25 MG TABLET PO SCH ×3 (00:38→16:46)
[2021-05-21] MEDS: *HR* GlyBURIDE 5 MG TABLET PO SCH (09:11)
[2021-05-21] MEDS: Aspirin Enteric Coated 81 MG Tablet PO SCH (09:11)
[2021-05-21] MEDS: Multivit/Ca/Min/Fe/FA 1 TAB TABLET PO SCH (09:11)
[2021-05-21] MEDS: NIFEdipine XL (24 HR) 30 MG TAB.ER.24 PO SCH (09:11)
[2021-05-21] MEDS: Insulin LISPRO 300 UNITS/3 ML VIAL SUBQ SCH ×4 (09:12→21:10)
[2021-05-21] MEDS: rOPINIRole 1 MG TABLET PO SCH ×3 (09:12→21:08)
[2021-05-22] MEDS: hydrALAZINE 25 MG TABLET PO SCH ×3 (00:27→15:46)
[2021-05-22] MEDS: Insulin LISPRO 300 UNITS/3 ML VIAL SUBQ SCH ×4 (10:02→21:32)
[2021-05-22] MEDS: rOPINIRole 1 MG TABLET PO SCH ×3 (10:06→21:33)
[2021-05-22] MEDS: NIFEdipine XL (24 HR) 30 MG TAB.ER.24 PO SCH (10:06)
[2021-05-22] MEDS: Multivit/Ca/Min/Fe/FA 1 TAB TABLET PO SCH (10:06)
[2021-05-22] MEDS: *HR* GlyBURIDE 5 MG TABLET PO SCH (10:06)
[2021-05-22] MEDS: Aspirin Enteric Coated 81 MG Tablet PO SCH (10:06)
[2021-05-23] MEDS: hydrALAZINE 25 MG TABLET PO SCH ×4 (00:23→23:15)
[2021-05-23] MEDS: Insulin LISPRO 300 UNITS/3 ML VIAL SUBQ SCH ×4 (07:20→20:44)
[2021-05-23] MEDS: rOPINIRole 1 MG TABLET PO SCH ×3 (07:55→20:49)
[2021-05-23] MEDS: *HR* GlyBURIDE 5 MG TABLET PO SCH (07:55)
[2021-05-23] MEDS: Aspirin Enteric Coated 81 MG Tablet PO SCH (07:55)
[2021-05-23] MEDS: Multivit/Ca/Min/Fe/FA 1 TAB TABLET PO SCH (07:56)
[2021-05-23] MEDS: NIFEdipine XL (24 HR) 30 MG TAB.ER.24 PO SCH (07:56)
[2021-05-23] MEDS ORDERED: Sennosides/Docusate Sodium TABLET PO PRN (22:09)
[2021-05-24 06:23] LABS: Basophils % 0.5 %; Eosinophils # 0.2 K/mcL (0.0-0.6); Eosinophils % 3.3 %; Hematocrit 28.4 % (35.3-44.9); Hemoglobin 9.2 g/dL (11.5-15.4); Immature Granulocytes % 0.2 % (0-4); Lymphocytes # 1.7 K/mcL (0.6-4.6); Lymphocytes % 29.8 %; Mean Corpuscular HGB Conc 32.4 g/dL (31.6-35.5); Mean Corpuscular Hemoglobin 28.8 pg (28.0-33.3); Mean Platelet Volume 10.5 fL (9.4-12.4); Monocytes # 0.5 K/mcL (0.0-1.3); Neutrophils # 3.4 K/mcL (1.6-8.9); Platelet Count 243 K/mcL (140-400); Red Blood Count 3.19 M/mcL (3.82-4.97); Red Cell Distribution Width 15.3 % (11.5-14.5); Segmented Neutrophils % 58.2 %; White Blood Count 5.8 K/mcL (4.3-11.1)
[2021-05-24 06:49] LABS: BUN/Creatinine Ratio 10 (6-26); Blood Urea Nitrogen 8 mg/dL (8-23); Calcium 8.7 mg/dL (8.6-10.3); Carbon Dioxide 25 mEq/L (23-29); Chloride 103 mEq/L (98-107); Glucose 107 mg/dL (70-105); Osmolality,Calculated 281 (280-300); Potassium 3.4 mEq/L (3.5-5.1); Sodium 136 mEq/L (136-145); eGFR For African Americans > 60 (> 60); eGFR For Non-African Americans > 60 (> 60)
[2021-05-24] MEDS: hydrALAZINE 25 MG TABLET PO SCH ×3 (08:19→23:57)
[2021-05-24] MEDS: Aspirin Enteric Coated 81 MG Tablet PO SCH (08:19)
[2021-05-24] MEDS: NIFEdipine XL (24 HR) 30 MG TAB.ER.24 PO SCH (08:19)
[2021-05-24] MEDS: *HR* GlyBURIDE 5 MG TABLET PO SCH (08:20)
[2021-05-24] MEDS: Multivit/Ca/Min/Fe/FA 1 TAB TABLET PO SCH (08:21)
[2021-05-24] MEDS: rOPINIRole 1 MG TABLET PO SCH ×3 (08:21→20:08)
[2021-05-24] MEDS: Insulin LISPRO 300 UNITS/3 ML VIAL SUBQ SCH ×4 (08:21→20:08)
[2021-05-25] MEDS: Insulin LISPRO 300 UNITS/3 ML VIAL SUBQ SCH ×4 (07:25→22:04)
[2021-05-25] MEDS: Aspirin Enteric Coated 81 MG Tablet PO SCH (09:10)
[2021-05-25] MEDS: *HR* GlyBURIDE 5 MG TABLET PO SCH (09:10)
[2021-05-25] MEDS: NIFEdipine XL (24 HR) 30 MG TAB.ER.24 PO SCH (09:10)
[2021-05-25] MEDS: rOPINIRole 1 MG TABLET PO SCH ×3 (09:10→22:07)
[2021-05-25] MEDS: Multivit/Ca/Min/Fe/FA 1 TAB TABLET PO SCH (09:12)
[2021-05-25] MEDS: hydrALAZINE 25 MG TABLET PO SCH ×3 (09:12→22:07)
[2021-05-26] MEDS: Insulin LISPRO 300 UNITS/3 ML VIAL SUBQ SCH ×4 (08:43→21:52)
[2021-05-26] MEDS: *HR* GlyBURIDE 5 MG TABLET PO SCH (09:33)
[2021-05-26] MEDS: Multivit/Ca/Min/Fe/FA 1 TAB TABLET PO SCH (09:33)
[2021-05-26] MEDS: rOPINIRole 1 MG TABLET PO SCH ×3 (09:34→22:28)
[2021-05-26] MEDS: hydrALAZINE 25 MG TABLET PO SCH ×3 (09:35→22:28)
[2021-05-26] MEDS: Aspirin Enteric Coated 81 MG Tablet PO SCH (09:35)
[2021-05-26] MEDS: NIFEdipine XL (24 HR) 30 MG TAB.ER.24 PO SCH (09:36)
[2021-05-27] MEDS: Melatonin 3 MG TABLET PO PRN (00:16)
[2021-05-27] MEDS: Insulin LISPRO 300 UNITS/3 ML VIAL SUBQ SCH ×4 (07:59→20:49)
[2021-05-27] MEDS: Aspirin Enteric Coated 81 MG Tablet PO SCH (10:20)
[2021-05-27] MEDS: Multivit/Ca/Min/Fe/FA 1 TAB TABLET PO SCH (10:20)
[2021-05-27] MEDS: rOPINIRole 1 MG TABLET PO SCH ×3 (10:21→20:49)
[2021-05-27] MEDS: NIFEdipine XL (24 HR) 30 MG TAB.ER.24 PO SCH (10:21)
[2021-05-27] MEDS: hydrALAZINE 25 MG TABLET PO SCH ×2 (10:21→16:40)
[2021-05-27] MEDS: *HR* GlyBURIDE 5 MG TABLET PO SCH (10:21)
[2021-05-27 19:49] VITALS: RESP 16
[2021-05-28] MEDS: hydrALAZINE 25 MG TABLET PO SCH ×3 (01:06→17:03)
[2021-05-28] MEDS: Insulin LISPRO 300 UNITS/3 ML VIAL SUBQ SCH ×4 (08:28→21:58)
[2021-05-28] MEDS: NIFEdipine XL (24 HR) 30 MG TAB.ER.24 PO SCH (09:25)
[2021-05-28] MEDS: Multivit/Ca/Min/Fe/FA 1 TAB TABLET PO SCH (09:25)
[2021-05-28] MEDS: rOPINIRole 1 MG TABLET PO SCH ×3 (09:25→21:58)
[2021-05-28] MEDS: Aspirin Enteric Coated 81 MG Tablet PO SCH (09:26)
[2021-05-28] MEDS: *HR* GlyBURIDE 5 MG TABLET PO SCH (09:26)
[2021-05-28 10:10] LABS: Hematocrit 31.5 % (35.3-44.9); Hemoglobin 10.3 g/dL (11.5-15.4); Mean Corpuscular HGB Conc 32.7 g/dL (31.6-35.5); Mean Corpuscular Hemoglobin 29.4 pg (28.0-33.3); Mean Platelet Volume 10.9 fL (9.4-12.4); Platelet Count 287 K/mcL (140-400); Red Cell Distribution Width 15.3 % (11.5-14.5); White Blood Count 8.1 K/mcL (4.3-11.1)
[2021-05-28 10:27] LABS: BUN/Creatinine Ratio 10 (6-26); Blood Urea Nitrogen 11 mg/dL (8-23); Calcium 9.2 mg/dL (8.6-10.3); Carbon Dioxide 22 mEq/L (23-29); Chloride 102 mEq/L (98-107); Glucose 221 mg/dL (70-105); Osmolality,Calculated 284 (280-300); Potassium 3.9 mEq/L (3.5-5.1); Sodium 134 mEq/L (136-145); eGFR For African Americans > 60 (> 60); eGFR For Non-African Americans 51 (> 60)
[2021-05-28 19:19] VITALS: BP 163/61; PULSE 81; TEMP 98.2; O2SAT 95
[2021-05-28] MEDS: Melatonin 3 MG TABLET PO PRN (21:58)
[2021-05-29] MEDS: hydrALAZINE 25 MG TABLET PO SCH ×2 (01:34→08:04)
[2021-05-29] MEDS: Insulin LISPRO 300 UNITS/3 ML VIAL SUBQ SCH (07:25)
[2021-05-29] MEDS: NIFEdipine XL (24 HR) 30 MG TAB.ER.24 PO SCH (08:04)
[2021-05-29] MEDS: Multivit/Ca/Min/Fe/FA 1 TAB TABLET PO SCH (08:04)
[2021-05-29] MEDS: Aspirin Enteric Coated 81 MG Tablet PO SCH (08:04)
[2021-05-29] MEDS: rOPINIRole 1 MG TABLET PO SCH (08:04)
[2021-05-29] MEDS: *HR* GlyBURIDE 5 MG TABLET PO SCH (08:04)
== END 2021-05-29 12:40 | disposition home health service (06) | DRG 560 ==
LOC: INPPIK 05-16 00:30
PROVIDERS: ADMIT Family Medicine; ATTEND Family Medicine